=== PATIENT | female | born 1970 | race Two or more races ===

== ENCOUNTER 2021-07-05 14:42 | Outpatient (CLI) | payer BC, MEDICAID, SELFPAY ==
--- NOTE | 2021-07-05 14:50 | MM_ITS ---
WS: [id number] BILATERAL DIGITAL SCREENING MAMMOGRAPHY WITH CAD CLINICAL INFORMATION: SCREENING HISTORY: Screening mammogram. No current complaints. COMPARISON: None available TECHNIQUE: Bilateral CC and MLO views. FINDINGS: No comparisons available The breasts are composed of heterogeneous fibroglandular density tissue, which can limit the detectio n of small underlying mass lesions. Numerous bilateral punctate calcifications. Some of these are ind eterminate in appearance with a linear branching configuration bilaterally. Recommend spot magnificat ion views for further evaluation . MM/[place] [id number] IMPRESSION: BI-RADS: 0-Incomplete: Need additional imaging evaluation FOLLOW UP: Need Additional Imaging Without the benefit of comparisons, recommend spot magnification views bilatera l breasts in the area of calcifications.
== END 2021-07-05 14:43 | disposition home or self-care (01) ==
LOC: RADSHAW 14:48
PROVIDERS: PCP Physician Assistant; Visit Provider Physician Assistant
DX: Z12.31 Encounter for screening mammogram for malignant neoplasm of breast (principal)
CPT/HCPCS: 77067

== ENCOUNTER 2021-08-04 10:09 | Outpatient (CLI) | payer BC, MEDICAID, SELFPAY ==
--- NOTE | 2021-08-04 10:16 | MM_ITS ---
WS: [id number] BILATERAL DIGITAL DIAGNOSTIC MAMMOGRAM MAMMOGRAPHY WITH CAD CLINICAL INFORMATION: KERON CALCIFICATIONS COMPARISON: July 05, 2021 and TECHNIQUE: Bilateral CC, MLO, and ML views. FINDINGS: The breasts are composed of heterogeneous fibroglandular density, which can limit the detection of sm all underlying mass lesions. Punctate calcifications are similar in appearance to the outside examina tion . Some of these appear to represent benign milk of calcium. No suspicious focal mass, asymmetry, calcifications, or architectural distortion. No evidence of zay gnancy. MM/[place] [id number] IMPRESSION: BI-RADS: 2-Benign FOLLOW UP: 1 Year Follow-up Recommend return to annual screening mammography.
== END 2021-08-04 10:10 | disposition home or self-care (01) ==
LOC: RADSHAW 10:12
PROVIDERS: PCP Physician Assistant; Visit Provider Physician Assistant
DX: R92.1 Mammographic calcification found on diagnostic imaging of breast (principal)
CPT/HCPCS: 77066

== ENCOUNTER 2021-08-25 10:32 | Outpatient (CLI) | payer BC, MEDICAID, SELFPAY ==
--- NOTE | 2021-08-25 10:39 | MR_ITS ---
WS: [id number] MRI LUMBAR SPINE NONCONTRAST HISTORY: LUMBAR RADICULOPATHY COMPARISON: None available. TECHNIQUE: Sagittal and axial multisequence imaging is submitted. Straightening and slight reversal of the normal cervical lordosis. C5 retrolisthesis by 2 mm with ost eophytic ridging. Straightening and mild curvature of the thoracic spine. Very mild straightening of the normal lumbar lordosis. Small amount of reactive marrow edema along th e superior endplate of L5. May be related to a Schmorl's node defect. No acute fractures. Mild disc space narrowing and desiccation at L5-S1. Conus terminates normally at L1-2 disc level. L1-L2: Normal. L2-L3: Mild asymmetric disc bulging slightly greater to the RIGHT. No stenosis. L3-L4: Normal. L4-L5: Mild annular disc bulge with a central disc protrusion causing mild flattening of the ventral thecal sac. There is very mild contact on the RIGHT traversing L5 nerve root. Very mild disc and oste ophyte encroachment into the foramina with no high-grade stenosis. Small amount of fluid in the facet joints. L5-S1: Moderate size central disc protrusion. Disc protrusion contacts but does not displace the S1 n erve roots. There is very slightly greater contact on the RIGHT S1 nerve root. Small amount of fluid in the facet joints. There is mild disc encroachment into the LEFT foramen. MR/MR lumbar spine wo con* [id number] IMPRESSION: 1. Moderate size central disc protrusion at L5-S1 contacts but does not displa ce the S1 nerve roots. Slightly greater contact on the RIGHT. 2. Very mild disc encroachment into the LEFT foramen at L5-S1. 3. Mild disc bulging with a central disc protrusion at L4-5 minimal contact on the RIGHT traversing L5 nerve root.
== END 2021-08-25 10:33 | disposition home or self-care (01) ==
LOC: RADSHAW 10:37
PROVIDERS: PCP Physician Assistant; Visit Provider Physician Assistant
DX: M54.16 Radiculopathy, lumbar region (principal); M51.27 Other intervertebral disc displacement, lumbosacral region; M51.26 Other intervertebral disc displacement, lumbar region
CPT/HCPCS: 72148

== ENCOUNTER → 2021-09-16 13:56 | Outpatient (BNVA) | payer BC, MEDICAID, SELFPAY | PROVIDERS: PCP Physician Assistant; Referring Provider Physician Assistant; Visit Provider Orthopaedic Surgery | DX: M54.50 Low back pain, unspecified (principal) | CPT/HCPCS: 72110 ==

== ENCOUNTER 2022-08-10 14:55 | Outpatient (CLI) | payer BC, MEDICAID, SELFPAY ==
--- NOTE | 2022-08-10 15:00 | CT_ITS ---
WS: [id number] CT CHEST WITH INTRAVENOUS CONTRAST HISTORY: NODULE OF LEFT LUNG TECHNIQUE: Contiguous 5 mm axial imaging performed on the thorax. Coronal and sagittal reformats are submitted. All CT scans at [facility] use at least one of these dose optimization techniques: automated exposure control; mA and/or kV adjustment per patient size (includes targeted exams where dose is matched to clinical indication); or iterative reconstruction. CONTRAST: Omnipaque 350; 95 mL IV. DLP: 705.38 mGy.cm COMPARISON: Chest radiograph 07/06/2022 Lungs and central airway: LEFT lower lobe nodule abuts the pleura measuring 12 x 11 mm. There are adj acent small additional ill-defined nodules surrounding the dominant nodule. This corresponds to the a bnormality seen on recent chest radiograph. There are small nodules along the LEFT major fissure whic h are typically benign intrapulmonary lymph nodes. The remaining lungs are clear. Pleura: Normal. No pleural effusion. Heart and pericardium: Normal size heart with no pericardial effusion. Mediastinum and artur: No adenopathy. Vessels: Normal size aortic and pulmonary artery. No coronary artery calcifications. Chest wall and lower neck: No soft tissue masses. Upper abdomen: Hepatic cyst x2. Largest in the RIGHT lobe measures 1.9 cm at its maximum. Appearance of the gallbladder is negative. No adrenal mass. Osseous structures: Straightening and curvature thoracic spine. CT/CT chest w con* [id number] IMPRESSION: 1. LEFT lower lobe nodule measuring 12 x 11 mm abuts the pleura with adjacent tiny satellite nodules. Recommend follow-up PET/CT imaging and ordered chest CT follow-up in 3 months. This may be postinflammatory or early neoplasm. 2. No adenopathy. 3. Hepatic cysts.
[2022-08-10] MEDS: iohexol 350 mg/mL 500 mL Btl (per mL) IV (15:14)
== END 2022-08-10 14:56 | disposition home or self-care (01) ==
LOC: RAD 14:56
PROVIDERS: PCP Physician Assistant; Visit Provider Physician Assistant
DX: R91.1 Solitary pulmonary nodule (principal); K76.89 Other specified diseases of liver
CPT/HCPCS: 71260; Q9967

== ENCOUNTER 2022-10-11 07:00 | Day surgery (SDC) | payer BC, MEDICAID, SELFPAY ==
[2022-10-10 14:46] VITALS: BMI 30.9
[2022-10-11] VITALS (10 sets, daily range): BP systolic 103–143; BP diastolic 55–89; PULSE 80–105; RESP 14–18; TEMP 36.1; O2SAT 91–97
[2022-10-11] MEDS: sodium chloride 0.9% 1,000 ML 30 ML IV (07:30)
[2022-10-11 07:38] LABS: OR HCG Qualitative Urine Negative (Negative)
--- NOTE | 2022-10-11 08:15 | P.ANESASSM_ITS ---
Pre-Anesthetic Assessment Height/Weight: Height 1.6 m Weight 79.379 kg Temp Pulse Resp BP Pulse Ox O2 Del Method 97.0 F L 80 18 143/89 97 10/11/22 07:24 10/11/22 07:24 10/11/22 07:24 10/11/22 07:24 10/11/22 07:24 10/11/22 07:24 Operation Date: 10/11/22 09:10 Proposed Procedures p Ebus 14141 and 86321, 92330, 99113; Dx Pulmonary nodule, R91.1(Not Applicable) - Erik Geller DatarMD Familial anesthetic complications: None Was Beta Vane taken within 24 hours: N/A Was Clonidine taken within 24 hours: N/A Last intake: Intake Last Liquid Date 10/10/22 Last Liquid Time 20:00 Last Solid Date 10/10/22 Last Solid Time 18:30 Social No alcohol and No tobacco fromer smoker Exam alert, oriented x 3, clear to auscultation bilaterally and regular rate & rhythm Airway Mallampati: Class III Dentition: chipped Pulmonary Asthma GI Gastroesophageal Reflux Disease Musc/skel Lower Back Pain Neuropsych Anxiety Anesthetic Plan ASA status: 2 Anesthesia: General Risk of > 500 ml blood loss (7ml/kg in children): No Medications/Allergies Home Medications Medication Instructions Recorded Confirmed Last Taken Type cbd oil PO 09/16/21 10/06/22 1 Month Ago History ~09/09/22 ibuprofen 600 mg tablet 600 mg PO Q8H PRN Pain 09/16/21 10/10/22 1 Day Ago Histo ry ~10/10/22 albuterol sulfate 90 mcg/actuation 2 puff inhalation Q4H PRN 10/06/22 10/10/22 1 Day Ago History aerosol inhaler Shortness Of Breath ~10/10/22 budesonide-formoterol HFA 160 2 puff inhalation BID 10/06/22 10/10/22 1 Day Ago History mcg-4.5 mcg/actuation aerosol ~10/10/22 inhaler (Symbicort) calcium 600 mg-D3 800 unit-mag11 1 tab PO DAILY 10/06/22 10/11/22 1 Day Ago History 50 ie-wwsn-gyldxb-lopez-s.borat ~10/10/22 tablet cyclobenzaprine 10 mg tablet 10 mg PO TID PRN Anxiety 10/06/22 10/10/22 10/08/22 History famotidine 20 mg tablet 20 mg PO BID 10/06/22 10/10/22 10/10/22 History multivitamin 1 tab PO DAILY 10/06/22 10/10/22 10/08/22 History Allergies Allergy/AdvReac Type Severity Reaction Status Date / Time Penicillins Allergy Intermediate rash Verified 10/06/22 08:15 PFSH Anesthesia Family History Other Diabetes Family history of premature coronary artery disease Social History Smoking and tobacco status: former smoker Quit status (tobacco): has quit using tobacco Year quit tobacco: 1997 Former quit date comment: 1ppd X 20 years Second hand smoke exposure: No Smoking risk assessment/counseling performed?: No Alcohol intake: current Alcohol intake frequency: holidays/special occasions only Desire information about alcohol rehabilitation?: No Desire information about substance/drug rehabilitation?: No Counseling given: No Adopted: Yes Caregiver/support person: Yes Lives independently: No Household members: spouse Housing: Apartment Marital status: Number of children: 0 Highest education level completed: 11th Grade service: No Current occupational status: unemployed Current occupational exposures/hazards: No Pets and animals: Yes History of recent travel: Yes Out of state: Yes Out of country: No Current gender identity: Female Special gayla needs: No Agree to transfusion: Yes Data Anesthesia Cardiac Studies: No Data to Display
--- NOTE | 2022-10-11 09:50 | W.PM.OPSUD ---
Surgery/Procedure H&P Update DATE OF PROCEDURE: October 11, 2022 DATE H&P PERFORMED: 10/06/22 H&P UPDATE INFORMATION: I have reviewed H&P completed within last 30 days CHANGES TO PREVIOUS DOCUMENTATION: NONE PREOP DIAGNOSIS: PET Active left hilar lymph node - suspicious for malignancy PLANNED PROCEDURE: Operation Date: 10/11/22 09:10 Proposed Procedures p Ebus 12928 and 65360, 12362, 46032; Dx Pulmonary nodule, R91.1(Not Applicable) - Erik Geller DatarMD
[2022-10-11] MEDS: lidocaine 1% INJ 20 mL XX (10:08)
--- NOTE | 2022-10-11 10:55 | P.OP_ITS ---
Operative Report Date of procedure: October 11, 2022 Pre-op diagnosis: Preop Diagnosis PET Active left hilar lymph node - suspicious for malignancy Post-op diagnosis: preliminary diagnosis nonsmall cell cancer Procedure done: -CPT code 87787: Bronchoscope with BAL from Left lower lobe -CPT code 47289:EBUS Sampling 1/2 nodes Surgeon: Erik Wei MD [facility] Brief History: Ms. Kristy Lisa is a 51 year old female with Past medical history of low back pain and lumbar radiculopathy.,? Generalized anxiety disorder,?? Asthma, ex- smoker, referred by Gale Dumont for left lung nodule. Initially she underwent a chest x-ray for shortness of breath on 07/06/2022 which showed 1.8 cm soft tissue nodule in left lower lung zone.? Subsequently a CT chest was performed on 08/11/2022 which showed left lower lobe nodule measuring 12 x 11 mm abuts the pleura with adjacent tiny satellite nodules.? There were suspicious for early neoplasm as patient has significant history of smoking? 1 pack/day for 20 years and quit in 1997. Patient underwent PET/CT scan on 08/27/2022-reported subpleural 0.9 x 1.2 cm LLL nodule with SUV 2.1 (FDG uptake misregistered due to motion artifact compared to adjacent lung parenchyma with max SUV 0.8) with hypermetabolic activity-this is suspicious for primary lung neoplasm.? Also noted hypermetabolic left perihilar lymph node or nodule measuring 1.6 x 1.8 cm with max SUV of 4.1.? There are no other hypermetabolic thoracic lymph nodes or pulmonary nodules.?Also there is mild increased FDG uptake of the endometrial stripe . Obtaining biopsies for left lower lobe subpleural nodule has high chance of developing pneumothorax, hence I have discussed with patient about doing endobronchial ultrasound-guided biopsies of left hilar lymph node. She verbalized understanding and agreed for the procedure. Today I am going to perform endobronchial ultrasound-guided FNA C of left hilar lymph node. Procedure: -CPT code 37150: Bronchoscope with BAL from Left lower lobe -CPT code 29970:EBUS Sampling 1/2 nodes -Control of bleeding Indication: PET active left hilar lymphnode Anesthesia: General anesthesia. Local anesthesia: The vocal chords, niru in the right and left mainstem bronchi were anesthetized with 1% lidocaine, 3 mL. Description of the procedure: The procedure was explained to the patient and the consent was obtained. The patient was brought to the OR. The patient underwent Laryngeal mask airway placement for general anesthesia. Following induction of general anesthesia, the bronchoscope was advanced through the LMA. The Vocal c hords are mobile and sharp. 1ml 1% lidocaine instilled. The scope advanced through glottis and trachea mucosa appeared normal, no endotracheal lesion was seen. The niru was sharp. The niru, the right and left mainstem bronchi are anesthetized with 1 ml of 1% lidocaine. In a systematic manner bilateral bronchial tree was then examined. The bronchoscope was advanced into the left mainstem bronchus. The mucosa appeared normal with no endobronchial lesions. The left upper lobe, lingula and left lower lobe bronchi were examined up to the third subsegmental level and no abnormalities were identified. Mucosa appeared normal with no endobronchial lesion, active bleeding or mucous plug. There were some clear secretions in lower lobe-which were suctioned right away. The bronchoscope was then introduced into the right mainstem bronchus. The right upper lobe, right middle lobe and right lower lobe bronchi were examined up to the third subsegmental level and no abnormalities were identified. The mucosa appeared normal with no endobronchial lesions, active bleeding or mucous plugs. The bronchoscope was retracted and endobronchial ultrasound was introduced. Identified a lymph node in station 11 L and fine-needle aspiration cytology samples were obtained ([id number]). Prepared 1 touch prep from station 11 L lymph node for YANDEL and preliminary pathology diagnosis was suspicious for malignancy. I made 3 more passes and obtained tissue and placed in formalin for histopathology review. Ebus retracted and bronchoscope reintroduced to make sure there is no evidence of overt bleeding. After making sure there is no bleeding, bronchoscope was wedged in medial segment of left lower lobe. 30 ml of normal saline was instilled, brochoa lveolar lavage fluid return was 15 mL. The fluid was mixed with blood. There was no overt bleeding. Samples: 1. Bronchoalveolar lavage specimen was sent for cell count and differential, gram stain and culture, cytology 2. EBUS guided fine-needle aspiration cytology of station 11L lymph node- samples sent in formalin for histopathology review Complications: None.The patient was extubated and brought to the PACU in stable condition. Postprocedure chest x-ray: No evidence of pneumothorax Disposition: Patient can be discharged home in stable condition. I will set up clinic follow-up in 7-10 days to follow-up on biopsy results. Related Problem List Diagnoses (1) Left lower lobe pulmonary nodule: (2) Hilar adenopathy:
--- NOTE | 2022-10-11 10:56 | XR_ITS ---
WS: [id number] Exam: XR chest 1V portable [id number] Date/Time of Exam: 10/11/2022 11:00 AM Reason For Exam: post hilar lymph node biopsies Comparison 07/06/2022. The lungs are clear and fully expanded. Normal cardiomediastinal silhouette and regional bony element s. No pleural effusions. XR/XR chest 1V portable [id number] IMPRESSION: 1. Negative chest.
[2022-10-11 18:13] LABS: Apprearance, Bronch Wash Cloudy (CLEAR); Color, Bronc Wash Slight Pink; Cyto Order Verification Order Verified
[2022-10-11 18:46] LABS: Total Cells Counted Bronch 200
[2022-10-20 10:50] LABS: PD-L1 (Clone 22C3) by IHC BBPL See Report
== END 2022-10-11 12:05 | disposition home or self-care (01) ==
PROVIDERS: Anesthesiology; PCP Physician Assistant; Visit Provider Internal Medicine Pulmonary Disease
PROC: 0BJ08ZZ Inspection of Tracheobronchial Tree, Via Natural or Artificial Opening Endoscopic (ICD-10-PCS; CPT 31622; principal; 2022-10-11 09:00)
PROC: BB4BZZZ Ultrasonography of Pleura (ICD-10-PCS; 2022-10-11 09:00)
DX: C96.9 Malignant neoplasm of lymphoid, hematopoietic and related tissue, unspecified (principal); Z87.891 Personal history of nicotine dependence; J45.909 Unspecified asthma, uncomplicated; K21.9 Gastro-esophageal reflux disease without esophagitis; F41.9 Anxiety disorder, unspecified
CPT/HCPCS: 31624; 31652; 71045; 80503; 84703; 87070; 87205; 88112; 88305; 88341; 88342; 89050; J1100; J2250; J2405; J2704; J3010; J3490; J7030

== ENCOUNTER 2022-11-01 06:59 | Outpatient (CLI) | payer BC, MEDICAID, SELFPAY ==
--- NOTE | 2022-11-01 | ECG_ITS ---
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 Interpretive Statements NAME OF STUDY: EXERCISE SESTAMIBI STRESS TEST INDICATION: Chest Pain, PROCEDURE: The baseline electrocardiogram showed normal sinus rhythm with normal ST-Ts. At the baseline, the patient's blood pressure was 149/93 mmHg with a heart rate of 89. The patient exercised for 7 minutes and 30 seconds on a standard Zain protocol. Patient attained a maximum heart rate of 157 beats per minute(92% of the maximum predicted heart rate) with a blood pressure at the peak exercise of 177/78 mm Hg. The EKG at the peak exercise revealed no significant changes. Patient did not have any chest pain or any significant arrhythmis with the exercise Sestamibi was injected 1 minute prior to the peak exercise During the recovery phase, there were no new changes. Blood pressure at the end of the recovery phase was 150/91 mm Hg with a heart rate of 94 per minute. CONCLUSION: 1. Normal EKG response to treadmill exercise 2. No exercise-induced chest pain or cardiac arrhythmia 3. Fair exercise tolerance, attained a maximum of 10.2 METs 4. Sestamibi/Sestamibi perfusion results pending; see separate report. Electronically Signed On 11-01-2022 16:03:08 CDT by Brice Dee M.D. [id number]
[2022-11-01 07:05] VITALS: BMI 30.1
--- NOTE | 2022-11-01 07:32 | NMCV_ITS ---
NM hernan perf SPECT r/s* [id number] Kristy Lisa Age: 51 Gender: F : 1970 Exam Date: 11/01/2022 08:20 Ordering Phys: Myriam Dumont Technologist: COSTA Hussein Exam Location: [facility] Indications: CHEST PAIN STRESS TEST Please see separate stress test report in [facility] for full findings IMAGE PROTOCOL Rest/Stress 1 Exercise Day Radiopharmaceutical Dose (mCi) Administration Site Administered by Rest: Tc-99m 10.8 IV COSTA Lai Sestamibi Stress:Tc-99m 32.7 IV COSTA Lai Sestamibi Rest: 01-Nov-2022 60 Discovery 630 Stress: 01-Nov-2022 15 Discovery 630 Radiopharmaceutical was injected at 88 % maximum heart rate. Images obtained in supine and prone position. SPECT RESULTS Technical Quality: Excellent Raw Data Analysis: Normal Image Corrections: No attenuation or motion correction applied Summed Stress Score: 0 Summed Rest Score: 2 Summed Difference Score: 0 PERFUSION FINDINGS Fairly uniform myocardial tracer uptake with no significant perfusion abnormalities. Some attenuation artifacts were noted in the inferolateral region at rest FUNCTIONAL RESULTS (calculated via Gated SPECT) Stress Image LV EF (%): 80 Stress EDV (mL):56 TID: 1.07 Stress ESV (mL):11 FUNCTIONAL FINDINGS: Segmental wall motion analysis revealing no gross wall motion abnormalities IMPRESSIONS 1. Myocardial perfusion imaging revealing fairly uniform myocardial tracer uptake with no significant perfusion abnormalities. 2. Normal LV ejection fraction of 80%. 3. LV wall motion analysis revealing no gross wall motion abnormalities. 4. Normal LV volume. Low probability for coronary ischemia, based on the above findings No similar previous studies are available for comparison Dr Brice Dee MD [facility] (Electronically Signed) Final Date: 01 November 2022 12:01 S
[2022-11-01 09:22] VITALS: BP 150/91; PULSE 98
== END 2022-11-01 07:00 | disposition home or self-care (01) ==
LOC: CDL 07:02
PROVIDERS: PCP Physician Assistant; Visit Provider Physician Assistant
DX: R07.9 Chest pain, unspecified (principal)
CPT/HCPCS: 36415; 78452; 93017; A9500

== ENCOUNTER 2022-11-03 07:09 | Outpatient (CLI) | payer BC, MEDICAID, SELFPAY | END 2022-11-03 07:10 | disposition home or self-care (01) | LOC: RT 07:12 | PROVIDERS: PCP Physician Assistant; Visit Provider Internal Medicine Pulmonary Disease | DX: R91.1 Solitary pulmonary nodule (principal) | CPT/HCPCS: 94010; 94618; 94726; 94729 ==

== ENCOUNTER → 2022-11-08 12:00 | Outpatient (BNVA) | payer BC, MEDICAID, SELFPAY | PROVIDERS: PCP Physician Assistant; Referring Provider Physician Assistant; Visit Provider Nurse Practitioner Women's Health | DX: Z12.4 Encounter for screening for malignant neoplasm of cervix (principal) | CPT/HCPCS: 87624; 88305 ==

== ENCOUNTER 2022-12-02 09:14 | Day surgery (SDC) | payer BC, MEDICAID, SELFPAY ==
[2022-12-01 14:07] VITALS: BMI 31.3
[2022-12-02] VITALS (8 sets, daily range): BP systolic 126–145; BP diastolic 75–96; PULSE 79–96; RESP 12–18; TEMP 36.3–37; O2SAT 91–99
--- NOTE | 2022-12-02 09:21 | SC_ITS ---
WS: [id number] EXAMINATION: C-arm FL for CVA [id number] REASON FOR EXAM: Mediport insertion COMPARISON: None available. ORDER DATE: 12/02/2022 9:21 AM FINDINGS: A wire is placed on the single C-arm view at 1009 for vascular access followed by placement of right- sided Port-A-Cath SC/C-arm FL for CVA [id number] IMPRESSION: Satisfactory port placement. Fluoroscopy time 2.1 seconds
[2022-12-02 09:44] LABS: OR HCG Qualitative Urine Negative (Negative)
[2022-12-02] MEDS: sodium chloride 0.9% 1,000 ML 30 ML IV (09:46)
--- NOTE | 2022-12-02 10:12 | ANES.PREANE2 ---
Pre-Anesthetic Assessment Height/Weight: Height 1.6 m Weight 80.286 kg Temp Pulse Resp BP Pulse Ox O2 Del Method 97.7 F 79 18 136/78 97 Room Air 12/02/22 09:36 12/02/22 09:36 12/02/22 09:36 12/02/22 09:36 12/02/22 09:36 12/02/22 09:36 Preop Diagnosis: Non-small cell lung cancer Operation Date: 12/02/22 10:40 Proposed Procedures p 48246 port placement C34.92(Not Applicable) - Dax Dia DO Familial anesthetic complications: none Was Beta Vane taken within 24 hours: N/A Was Clonidine taken within 24 hours: N/A Last intake: Intake Last Liquid Date 12/01/22 Last Liquid Time 21:00 Last Solid Date 12/01/22 Last Solid Time 19:30 Social No alcohol and No tobacco (h/o smoking) Exam alert, oriented x 3 and regular rate & rhythm Airway Submandibular: within normal limits Cervical ROM: within normal limits Mallampati: Class II Dentition: chipped Pulmonary Chronic Obstructive Pulmonary Disease lung CA Metabolic Morbid Obesity Anesthetic Plan ASA status: 2 Anesthesia: Choice Medications/Allergies Home Medications Medication Instructions Recorded Confirmed Last Taken Type cbd oil PO 09/16/21 11/30/22 1 Month Ago History ~09/09/22 albuterol sulfate 90 mcg/actuation 2 puff inhalation Q4H PRN 10/06/22 12/02/22 11/19/22 History aerosol inhaler Shortness Of Breath budesonide-formoterol HFA 160 2 puff inhalation BID 10/06/22 12/02/22 12/01/22 History mcg-4.5 mcg/actuation aerosol inhaler (Symbicort) calcium 600 mg-D3 800 unit-mag11 1 tab PO DAILY 10/06/22 12/02/22 12/01/22 History 50 ak-grvq-xpmiux-lopez-s.borat tablet cyclobenzaprine 10 mg tablet 10 mg PO TID PRN Anxiety 10/06/22 12/02/22 10/08/22 History famotidine 20 mg tablet 20 mg PO BID 10/06/22 12/02/22 12/02/22 History multivitamin 1 tab PO DAILY 10/06/22 12/02/22 11/30/22 History aspirin 500 mg tablet,delayed 500 mg PO DAILY PRN supplement 10/25/22 12/02/22 Unknown History release berberine-herbal comb no.18 capsule 2 cap PO DAILY 10/25/22 12/02/22 12/01/22 History biotin 10,000 mcg chewable tablet See Rx Instructions PO DAILY 10/25/22 12/02/22 12/01/22 History (Hair, Skin and Nails (biotin)) fluticasone propionate 50 2 spray intranasal DAILY 10/25/22 12/02/22 Unknown History mcg/actuation nasal spray,suspension loratadine 10 mg tablet (Claritin) 10 mg PO DAILY 10/25/22 12/02/22 12/02/22 History ibuprofen 200 mg tablet 200 mg PO Q6H PRN Pain 11/08/22 12/02/22 11/30/22 History norethindrone acetate 5 mg tablet 5 mg PO DAILY #90 tabs 11/25/22 12/02/22 12/02/22 Rx Allergies Allergy/AdvReac Type Severity Reaction Status Date / Time Penicillins Allergy Intermediate rash Verified 11/30/22 14:11 Current Medications Generic Name Dose Route Start Last Admin Trade Name Freq PRN Reason Stop Dose Admin Sodium Chloride 1,000 mls @ 30 mls/hr 12/02/22 09:30 12/02/22 09:46 Sodium Chloride 0.9% IV 12/03/22 09:29 30 mls/hr .Q24H GEORGE Administration PFSH Anesthesia Medical History Anxiety Asthma No pertinent past medical history neghx: htn,dm,thyroid,dvt/pe PCP: Myriam GONZALEZ Non-small cell cancer of left lung (~10/2022) Referred to [facility] for possible surgery Surgical History No pertinent past surgical history Family History Father Hyperlipidemia Other Diabetes Family history of premature coronary artery disease Denies family history of Colon cancer Ovarian cancer Heart disease Breast cancer Hypertension Uterine cancer Thyroid condition Stroke Social History Smoking and tobacco status: former smoker Alcohol intake: current Alcohol intake frequency: holidays/special occasions only Data Anesthesia Cardiac Studies: Sestamibi Stress Test (Cardiology) 11/01/22
--- NOTE | 2022-12-02 10:15 | PM.OP ---
Operative Report Date of procedure: December 05, 2022 Pre-op diagnosis: Preop Diagnosis Non-small cell lung cancer Post-op diagnosis: same Procedure done: Right subclavian Mediport placement Implants: PowerPort Specimens removed/disposition: None Surgeon: Dr. Dax Dia DO Anesthesia: MAC Estimated blood loss (mL): 5 Complications: None apparent Brief History: This is a very pleasant 52-year-old female with left lung cancer. Mediport insertion was requested for chemotherapy access. The risk and benefits were explained and documented. Procedure: The patient was taken to the operating room and placed supine on the operating room table. All bony prominences were padded. She was given IV sedation and monitored throughout the case by the anesthesia personnel. SCDs were placed and turned on. The arms were tucked to the side. Patient received Ancef 2 g preoperatively IV. The bilateral chest wall was prepped and draped in usual sterile fashion using chlorhexidine base prep. Sterile drapes were applied. We did procedure pause prior to beginning. An 18 gauge needle was placed in the right subclavian vein. Dark, nonpulsatile blood was aspirated. A guidewire was placed through the needle centrally toward the atrial/vena caval junction. Fluoroscopy visualized good placement. The needle was removed and the guidewire was clipped to the drape with a hemostat. Further local anesthetic was infiltrated in the soft tissues of the right chest wall and a #15 blade was used to make a horizontal skin incision. A subcutaneous Mediport pocket was created using Bovie cautery, dissecting down through the skin and subcutaneous tissues. Meticulous hemostasis was achieved. The Mediport was sutured in position using 3-0 vicryl suture x2 stitches. A #15 blade was used to make a small skin edinson around the guidewire insertion area. The Mediport tubing was tunneled through the subcutaneous tissues up to the needle insertion location. A dilator with a peel-away sheath was placed over the guidewire and placed centrally. After measuring the Mediport tubing was cut to length so that the tip would end at the atrial/vena caval junction. The inner cannula and the guidewire were removed, leaving the dilator sheath in place. The Mediport was flushed. The tip of the catheter was inserted through the peel-away sheath and the peel-away sheath removed in the standard fashion. The Mediport was accessed with a straight Turner needle and dark, nonpulsatile blood was aspirated and flushed using heparinized saline to hep-lock the Mediport. Final fluoroscopy visualization showed no kink in the catheter and the tip of the Mediport tubing near the atrial/vena caval junction. Both skin incisions were thoroughly irrigated and suctioned dry. Meticulous hemostasis noted. The dermis was approximated with 3-0 Vicryl in an interrupted fashion. Skin was closed with Dermabond. Patient was awakened from anesthesia and transferred via her cart to the recovery room in stable condition. All needle, sponge, and instrument counts were correct per the operating personnel x2 counts.
--- NOTE | 2022-12-02 10:25 | W.PM.OPSUD ---
Surgery/Procedure H&P Update DATE OF PROCEDURE: December 02, 2022 DATE H&P PERFORMED: 11/30/22 H&P UPDATE INFORMATION: I have reviewed H&P completed within last 30 days, I have examined patient prior to procedure and No changes to prior documentation PREOP DIAGNOSIS: Non-small cell lung cancer PLANNED PROCEDURE: Operation Date: 12/02/22 10:40 Proposed Procedures p [id number] port placement C34.92(Not Applicable) - Dax Dia DO
[2022-12-02] MEDS: vancomycin 1,500 MG/300 ML PIGGYBACK 150 MG IV (10:30)
[2022-12-02] MEDS: sodium chloride 0.9% 100 mL Bag XX (11:09)
[2022-12-02] MEDS: lidocaine-epi 2% 20 mL INJ INJECTION (11:10)
[2022-12-02] MEDS: heparin, porcine 1,000 unit/mL INJ 10 mL 10000 UNIT INJECTION (11:10)
--- NOTE | 2022-12-02 11:32 | XRR_ITS ---
PROCEDURE INFORMATION: Exam: XR Chest Exam date and time: 12/02/2022 10:37 AM Age: 52 years old Clinical indication: Device placement; Other: Port placement; Prior surgery; Surgery date: Post-operative (0-2 days) TECHNIQUE: Imaging protocol: Radiologic exam of the chest. Views: 1 view. COMPARISON: CR XR chest 1V portable [id number] 10/11/2022 11:13 AM FINDINGS: Tubes, catheters and devices: Right central line is in the SVC Lungs: Unremarkable. No consolidation. Pleural spaces: Unremarkable. No pleural effusion. No pneumothorax. Heart/Mediastinum: Unremarkable. No cardiomegaly. Bones/joints: Unremarkable. XR/XR chest 1V portable [id number] IMPRESSION: 1. No acute findings. 2. Right central line is in the SVC
[2022-12-02] MEDS: HYDROcodone-acetaminophen 5-325 mg Tablet 1 TAB PO (12:13)
--- NOTE | 2022-12-02 13:40 | ANE.PACU2 ---
Inpatient post-anesthesia follow up: Airway intact: Yes Vital signs: Temperature 98.6 F Pulse Rate 89 Respiratory Rate 18 Blood Pressure 132/96 Pulse Oximetry 91 Oxygen Delivery Me thod Room Air Oxygen Flow Rate 6 Fraction of Inspir ed Oxygen Hydration adequate: Yes Nausea and vomiting: No Pain level: 2 Mental status: Baseline
== END 2022-12-02 12:32 | disposition home or self-care (01) ==
PROVIDERS: Anesthesiology; PCP Physician Assistant; Visit Provider Surgery
PROC: (CPT 36561; principal; 2022-12-02 10:30)
DX: C34.92 Malignant neoplasm of unspecified part of left bronchus or lung (principal); F41.9 Anxiety disorder, unspecified; J44.9 Chronic obstructive pulmonary disease, unspecified; E66.9 Obesity, unspecified; Z68.31 Body mass index [BMI] 31.0-31.9, adult; Z79.82 Long term (current) use of aspirin; Z87.891 Personal history of nicotine dependence
CPT/HCPCS: 36561; 71045; 76000; 77001; 81025; 84703; C1788; J1644; J2704; J3370; J7030

== ENCOUNTER 2022-12-12 07:37 | Outpatient (CLI) | payer BC, MEDICAID, SELFPAY ==
--- NOTE | 2022-12-12 07:49 | MR_ITS ---
WS: [id number] MRI BRAIN WITH AND WITHOUT CONTRAST HISTORY: LUNG CANCER STAGING COMPARISON: None available. TECHNIQUE: Multiplanar imaging performed through the brain with MultiHance 18 ml's IV. No acute infarcts are seen. Arias-white matter differentiation is well preserved. No susceptibility artifacts or prior lacunar infarcts. Ventricles and extra-axial spaces are normal. Clivus and pituitary gland are normal. Visualized posterior fossa and brainstem are also normal. Postcontrast images are negative for masses or vascular malformations. Dural venous sinuses are normal. Paranasal sinuses: Well aerated with no significant disease. Mastoid air cells: Normal. Calvarium and scalp: Normal. MR/MR head wo/w con [id number] IMPRESSION: 1. No MRI evidence for metastatic disease to the brain. 2. No prior infarcts or significant small vessel ischemic disease.
[2022-12-12] MEDS: gadobenate dimeglumine 20 mL vial IV (08:45)
== END 2022-12-12 07:38 | disposition home or self-care (01) ==
LOC: RAD 07:40
PROVIDERS: PCP Physician Assistant; Visit Provider Thoracic Surgery (Cardiothoracic Vascular Surgery)
DX: C34.90 Malignant neoplasm of unspecified part of unspecified bronchus or lung (principal)
CPT/HCPCS: 70553; A9577

== ENCOUNTER 2022-12-14 09:58 | Oncology outpatient (recurring) (ONCR) | payer BC, MEDICAID, SELFPAY ==
[2022-11-28 15:00] LABS: Basophils % 0.5 %; Eosinophils # 0.2 10^3/uL (0.0-0.8); Eosinophils % 2.9 %; Hematocrit 39.6 % (37.0-47.0); Hemoglobin 13.1 g/dL (11.5-15.3); Lymphocytes # 1.5 10^3/uL (0.8-4.8); Lymphocytes % 19.1 %; Mean Corpuscular HGB Conc 33.1 g/dL (30.0-36.0); Mean Corpuscular Hemoglobin 30.5 pg (28.0-34.0); Mean Corpuscular Volume 92.1 fl (81-99); Mean Platelet Volume 8.6 fL (7.4-10.4); Monocytes # 0.4 10^3/uL (0.2-0.9); Monocytes % 5.6 %; Neutrophils # 5.63 10^3/uL (1.8-7.7); Neutrophils % 71.5 %; Nucleated Red Blood Cells % 0 %; Platelet Count 269 10^3/cmm (130-400); Red Cell Distribution Width 12.9 % (12.1-15.1); White Blood Count 7.9 10^3/uL (4.0-10.0)
[2022-11-28 15:25] LABS: Alanine Aminotransferase 13 U/L (0-33); Albumin Level 4.4 g/dL (3.5-5.2); Alkaline Phosphatase 54 U/L (35-105); Anion Gap 12.1 (5-19); Aspartate Amino Transferase 15 U/L (0-32); Blood Urea Nitrogen 10 mg/dL (6-20); Calcium 8.7 mg/dL (8.5-10.5); Carbon Dioxide 25 mmol/L (22-29); Chloride 100 mmol/L (98-107); Globulin 2.9 g/dL (1.3-4.6); Glomerular Filtration Rate 129.6 mL/min (90-130); Glucose 110 mg/dL (65-115); Osmolality Calculated 276 mOsm/kg (285-295); Potassium 4.1 mmol/L (3.5-5.1); Sodium 133 mmol/L (136-145); Total Bilirubin 0.2 mg/dL (0.15-1.2); Total Protein 7.3 g/dL (6.6-8.7)
--- NOTE | 2022-12-14 10:25 | N.ONRAD NP_ITS ---
Radiation Oncology Consultation Patient Name: Kristy Lisa Date of : 1970 Date of Service: 12/14/2022 Attending Physician: Flash Araiza M.D. Kristy Lisa was seen in consultation this afternoon at the request of Nick Prasad M.D. for consideration of thoracic radiotherapy in the management of a recently diagnosed non-small cell lung cancer. She was evaluated by her primary care physician in June of 2022 for dyspnea. Chest radiograph identified a 1.8 cm soft tissue nodule in the lower left lung. A thoracic CT scan ordered on August 10, 2022 described a 1.2 cm x 1.1 cm left lower-lobe nodule that abuts the pleura and benign intrapulmonary lymph nodes along the left major fissure. A PET scan completed on August 27, 2022 (independently reviewed in [facility]) demonstrated a 0.9 cm x 1.2 cm left lower-lobe nodule (SUV 2.1) and left alexy-hilar lymphadenopathy measuring 1.6 cm x 1.8 cm (SUV 4.1). A bronchoscopy with endobronchial ultrasound-guided biopsy performed on October 11, 2022 by Erik Wei M.D. A needle aspiration of an 11L lymph node a squamous cell carcinoma. She was referred to [facility] in [place], [place]. A thoracic CT scan revealed the 1.4 cm left lower-lobe nodule, pleural metastasis in the left oblique fissure, and left hilar lymphadenopathy. She was not considered a surgical candidate. An MRI of the head did not reveal metastatic disease. The patient was evaluated for definitive thoracic radiotherapy. I discussed with Ms. Lisa The [place] [employer] on [employer] Staging for lung cancer and specifically, the patient's clinical stage IIIA (T3N1) lung cancer corresponding to her disease. I also reviewed The National Comprehensive Cancer Network Guidelines recommending concurrent chemoradiotherapy for the management of locally advanced lung cancer established by the classic study, RTOG 9410, comparing sequential versus concurrent chemoradiotherapy that demonstrated an overall survival advantage for the concurrent chemoradiotherapy regimen. I would endorse a six week course of thoracic radiotherapy. Preceding radiotherapy, a computed tomographic radiotherapy planning scan with contrast in the treatment position will be acquired and co-registered to the patient's staging PET scan to identify the gross tumor volumes. The potential toxicities of thoracic radiotherapy were reviewed. The patient has verbalized understanding would like to proceed as recommended. The patient???s treatment plan was discussed with Nick Prasad M.D. Signed by: Flash Araiza 12/19/2022 1:33:40 PM
== END 2022-12-18 23:59 | disposition home or self-care (01) ==
PROVIDERS: PCP Physician Assistant; Visit Provider Internal Medicine Hematology & Oncology
DX: C34.32 Malignant neoplasm of lower lobe, left bronchus or lung (principal); C77.8 Secondary and unspecified malignant neoplasm of lymph nodes of multiple regions; Z87.891 Personal history of nicotine dependence
CPT/HCPCS: 36415; 80053; 85025; 99205; J2250; J3010

== ENCOUNTER 2023-01-09 08:00 | Oncology outpatient (recurring) (ONCR) | payer BC, MEDICAID, SELFPAY ==
--- NOTE | 2022-12-20 | CT_ITS ---
Radiation Therapy Planning CT images; total exam DLP: 566.94 mGy-cm MTDD
[2022-12-20] MEDS: iohexol 350 mg/mL 100 mL Btl IV (08:26)
[2022-12-26 09:00] VITALS: BP 130/81; PULSE 79; RESP 18; TEMP 35.8; O2SAT 97
[2022-12-26 09:13] LABS: Basophils % 0.7 %; Eosinophils # 0.3 10^3/uL (0.0-0.8); Eosinophils % 5.2 %; Hematocrit 38.1 % (37.0-47.0); Hemoglobin 12.2 g/dL (11.5-15.3); Lymphocytes # 1.5 10^3/uL (0.8-4.8); Lymphocytes % 25.5 %; Mean Corpuscular Hemoglobin 29.7 pg (28.0-34.0); Mean Corpuscular Volume 92.7 fl (81-99); Mean Platelet Volume 8.9 fL (7.4-10.4); Monocytes # 0.5 10^3/uL (0.2-0.9); Monocytes % 7.8 %; Neutrophils % 60.6 %; Nucleated Red Blood Cells % 0 %; Platelet Count 282 10^3/cmm (130-400); Red Blood Count 4.11 10^6/uL (4.1-5.3); Red Cell Distribution Width 13.2 % (12.1-15.1); White Blood Count 5.9 10^3/uL (4.0-10.0)
[2022-12-26 09:28] LABS: Alanine Aminotransferase 15 U/L (0-33); Albumin Level 4.1 g/dL (3.5-5.2); Alkaline Phosphatase 46 U/L (35-105); Anion Gap 14.1 (5-19); Aspartate Amino Transferase 13 U/L (0-32); Blood Urea Nitrogen 11 mg/dL (6-20); Carbon Dioxide 22 mmol/L (22-29); Chloride 107 mmol/L (98-107); Globulin 2.9 g/dL (1.3-4.6); Glomerular Filtration Rate 129.6 mL/min (90-130); Glucose 90 mg/dL (65-115); Osmolality Calculated 287 mOsm/kg (285-295); Potassium 4.1 mmol/L (3.5-5.1); Sodium 139 mmol/L (136-145); Total Bilirubin 0.2 mg/dL (0.15-1.2)
[2022-12-26] MEDS: acetaminophen 325 mg Tablet 650 MG PO (11:13)
[2022-12-26] MEDS: famotidine 20 mg/2 mL INJ IVP (11:14)
[2022-12-26] MEDS: palonosetron 0.25 mg/5 mL SDV IVP (11:14)
[2022-12-26] MEDS: diphenhydrAMINE 50 mg/mL SDV 1mL 25 MG IVP (11:14)
[2022-12-26] MEDS: dexamethasone 20 MG in sodium chloride 0.9% 50 ML 188 MG IV (11:15)
[2022-12-26] MEDS: sodium chloride 0.9% 250 ML 75 ML IV (11:15)
[2022-12-26] MEDS: PACLitaxeL 90 MG in sodium chloride 0.9%(non-DEHP) 250 ML 265 MG IV (11:45)
[2022-12-26] MEDS: CARBOplatin 300 MG in sodium chloride 0.9% 500 ML 530 MG IV (12:56)
[2022-12-26 14:10] VITALS: BP 140/79; PULSE 97; RESP 18; TEMP 36.7; O2SAT 98
--- NOTE | 2022-12-27 14:59 | ONCRAD TMN_ITS ---
Radiation Oncology Treatment Management Note Patient Name: Kristy Lisa Date of : 1970 Date of Service: 12/27/2022 Attending Physician: Flash Araiza M.D. Kristy Lisa is a 52 year old white female recently diagnosed with a clinical stage IIIA (T3N1) non-small cell lung cancer. She was evaluated by her primary care physician in June of 2022 for dyspnea. Chest radiograph identified a 1.8 cm soft tissue nodule in the lower left lung. A thoracic CT scan ordered on August 10, 2022 described a 1.2 cm x 1.1 cm left lower-lobe nodule that abuts the pleura and benign intrapulmonary lymph nodes along the left major fissure. A PET scan completed on August 27, 2022 demonstrated a 0.9 cm x 1.2 cm left lower-lobe nodule (SUV 2.1) and left alexy-hilar lymphadenopathy measuring 1.6 cm x 1.8 cm (SUV 4.1). A bronchoscopy with endobronchial ultrasound-guided biopsy performed on October 11, 2022 by Erik Wei M.D. A needle aspiration of an 11L lymph node a squamous cell carcinoma. She was referred to [facility] in [place], [place]. A thoracic CT scan revealed the 1.4 cm left lower-lobe nodule, pleural metastasis in the left oblique fissure, and left hilar lymphadenopathy. She was not considered a surgical candidate. An MRI of the head did not reveal metastatic disease. The patient has received 4 Gy of a prescribed 60 Arias with an intensity modulated radiotherapy plan utilizing a step and shoot treatment technique. She has been prescribed carboplatin (AUC 2) and paclitaxel (50 mg/m???) weekly during therapy. Upon review of systems, she denied pulmonary symptoms. On physical examination, the patient weighed 177 lbs. Her temperature was 98 ???F and the blood pressure was 140/79 mmHg. The pulse was 94 bpm and her respiratory rate was 18. Oxygen saturation while breathing room air was 98%. Continue thoracic radiotherapy as prescribed. Signed by: Flash Araiza 01/02/2023 8:55:00 AM
[2023-01-02 09:08] VITALS: BP 139/80; PULSE 18; RESP 16; TEMP 36.1; O2SAT 99
[2023-01-02 09:42] LABS: Basophils % 0.8 %; Eosinophils # 0.2 10^3/uL (0.0-0.8); Eosinophils % 4.1 %; Hematocrit 35.7 % (37.0-47.0); Hemoglobin 11.7 g/dL (11.5-15.3); Lymphocytes % 18.4 %; Mean Corpuscular HGB Conc 32.8 g/dL (30.0-36.0); Mean Corpuscular Hemoglobin 30.5 pg (28.0-34.0); Mean Corpuscular Volume 93.2 fl (81-99); Mean Platelet Volume 8.8 fL (7.4-10.4); Monocytes # 0.4 10^3/uL (0.2-0.9); Monocytes % 6.8 %; Neutrophils # 3.58 10^3/uL (1.8-7.7); Neutrophils % 69.5 %; Nucleated Red Blood Cells % 0 %; Platelet Count 287 10^3/cmm (130-400); Red Blood Count 3.83 10^6/uL (4.1-5.3); Red Cell Distribution Width 13.2 % (12.1-15.1); White Blood Count 5.2 10^3/uL (4.0-10.0)
[2023-01-02 10:08] LABS: Alanine Aminotransferase 13 U/L (0-33); Alkaline Phosphatase 39 U/L (35-105); Aspartate Amino Transferase 14 U/L (0-32); Blood Urea Nitrogen 15 mg/dL (6-20); Calcium 8.4 mg/dL (8.5-10.5); Carbon Dioxide 25 mmol/L (22-29); Chloride 106 mmol/L (98-107); Globulin 2.6 g/dL (1.3-4.6); Glucose 99 mg/dL (65-115); Osmolality Calculated 293 mOsm/kg (285-295); Sodium 141 mmol/L (136-145); Total Bilirubin 0.2 mg/dL (0.15-1.2); Total Protein 6.6 g/dL (6.6-8.7)
[2023-01-02] MEDS: sodium chloride 0.9% (100 ml) 100 ML 75 ML (12:01)
[2023-01-02] MEDS: pantoprazole 40 mg SDV IVP (12:01)
[2023-01-02] MEDS: ondansetron 2 mg/ML SDV 2 mL 8 MG IVP (12:04)
[2023-01-02] MEDS: famotidine 20 mg/2 mL INJ IVP (12:06)
[2023-01-02] MEDS: diphenhydrAMINE 50 mg/mL SDV 1mL 25 MG IVP (12:09)
[2023-01-02] MEDS: acetaminophen 325 mg Tablet 650 MG PO (12:12)
[2023-01-02] MEDS: PACLitaxeL 90 MG in sodium chloride 0.9%(non-DEHP) 250 ML 265 MG IV (12:51)
[2023-01-02] MEDS: CARBOplatin 300 MG in sodium chloride 0.9% 500 ML 530 MG IV (14:08)
[2023-01-02 15:12] VITALS: BP 120/80; PULSE 87; RESP 16; TEMP 36.7; O2SAT 94
[2023-01-02 18:41] LABS: Magnesium 2.1 mg/dL (1.7-2.3); Thyroid Stimulating Hormone 1.88 uIU/mL (0.27-4.20)
== END 2023-01-09 08:47 | disposition home or self-care (01) ==
PROVIDERS: Internal Medicine Hematology & Oncology; Nurse Practitioner Family; PCP Physician Assistant; Visit Provider Radiology Radiation Oncology
DX: C34.32 Malignant neoplasm of lower lobe, left bronchus or lung (principal)
CPT/HCPCS: 77300; 77301; 77334; 77336; 77338; 77386; 77470; 80053; 83735; 84443; 85025; 96375; 96413; 96417; C9113; J1100; J1200; J1642; J2405; J2469; J3490; J7040; J7050; J9045; J9267; Q9967

== ENCOUNTER 2023-01-10 23:39 | Oncology outpatient (recurring) (ONCR) | payer BC, MEDICAID, SELFPAY | END 2023-01-18 23:59 | disposition home or self-care (01) | LOC: ONCMED 02-09 23:39 | PROVIDERS: PCP Physician Assistant; Visit Provider Physician Assistant | DX: C34.32 Malignant neoplasm of lower lobe, left bronchus or lung (principal); Z51.0 Encounter for antineoplastic radiation therapy; Z79.899 Other long term (current) drug therapy; Z87.891 Personal history of nicotine dependence; Z95.828 Presence of other vascular implants and grafts | CPT/HCPCS: 77014; 77386; 77427 ==

== ENCOUNTER 2023-01-18 09:30 | Oncology outpatient (recurring) (ONCR) | payer BC, MEDICAID, SELFPAY ==
[2023-01-09 10:17] LABS: Basophils % 0.5 %; Eosinophils # 0.1 10^3/uL (0.0-0.8); Eosinophils % 2.8 %; Hematocrit 36.8 % (37.0-47.0); Hemoglobin 11.8 g/dL (11.5-15.3); Lymphocytes # 0.6 10^3/uL (0.8-4.8); Lymphocytes % 15.6 %; Mean Corpuscular HGB Conc 32.1 g/dL (30.0-36.0); Mean Corpuscular Hemoglobin 29.7 pg (28.0-34.0); Mean Corpuscular Volume 92.7 fl (81-99); Mean Platelet Volume 8.5 fL (7.4-10.4); Monocytes # 0.4 10^3/uL (0.2-0.9); Monocytes % 8.8 %; Neutrophils # 2.86 10^3/uL (1.8-7.7); Nucleated Red Blood Cells % 0 %; Platelet Count 291 10^3/cmm (130-400); Red Blood Count 3.97 10^6/uL (4.1-5.3); Red Cell Distribution Width 13.3 % (12.1-15.1)
[2023-01-09 10:42] LABS: Alanine Aminotransferase 19 U/L (0-33); Albumin Level 4.3 g/dL (3.5-5.2); Alkaline Phosphatase 39 U/L (35-105); Anion Gap 15.8 (5-19); Aspartate Amino Transferase 13 U/L (0-32); Blood Urea Nitrogen 11 mg/dL (6-20); Calcium 8.4 mg/dL (8.5-10.5); Carbon Dioxide 23 mmol/L (22-29); Chloride 106 mmol/L (98-107); Globulin 2.7 g/dL (1.3-4.6); Glomerular Filtration Rate 129.6 mL/min (90-130); Glucose 114 mg/dL (65-115); Osmolality Calculated 292 mOsm/kg (285-295); Potassium 3.8 mmol/L (3.5-5.1); Sodium 141 mmol/L (136-145); Total Bilirubin 0.3 mg/dL (0.15-1.2)
--- NOTE | 2023-01-09 12:36 | ONCRAD TMN_ITS ---
Radiation Oncology Weekly Treatment Management Patient: Maria L Wagner MR#: [id number] : 1970 Attending Physician: Antonio Farah M.D. Date of Service: 01/09/2023 Referring Physician(s) : Luis Prasad M.D. Diagnosis: C34.30 - Malignant neoplasm of lower lobe, unspecified bronchus or lung, Diagnosed 10/11/2022 (Active) Stage IIIA, T3, N1, M0 Radiotherapy to date: Course: Lung 2022, Treatment Site: Lung Ca ??? Lt, Ref. ID: [id number], Energy: 6X, Dose/Fx (cGy): 200, #Fx: , Dose Correction (cGy): 0, Total Dose (cGy): 2,200, Start Date: 12/26/2022, Elapsed Days: 14 Reason for visit: The patient is being seen today as part of their regularly scheduled weekly on treatment visits to assess for acute toxicities from radiotherapy. Review of Systems: Doing well overall. No sore throat. Breathing ok. Naps daily x 1 to 1 ??? hours a day. No smoking x 2 years. Vital Signs: Physical Exam: omitted Imaging: Radiation therapy imaging related to accurate target localization (i.e. KV, MV and CBCT) was reviewed. Appropriate changes, if any, were made to ensure treatment accuracy. Plan: Good tolerance of treatment. Continue as planned. Signed by: Antonio Farah 01/09/2023 12:33:57 PM
[2023-01-10 07:27] VITALS: BP 151/85; PULSE 88; RESP 16; TEMP 36.5; O2SAT 97
[2023-01-10] MEDS: sodium chloride 0.9% 250 ML 75 ML IV (08:25)
[2023-01-10] MEDS: acetaminophen 325 mg Tablet 650 MG PO (08:26)
[2023-01-10] MEDS: pantoprazole 40 mg SDV IVP (08:27)
[2023-01-10] MEDS: palonosetron 0.25 mg/5 mL SDV IVP (08:31)
[2023-01-10] MEDS: famotidine 20 mg/2 mL INJ IVP (08:33)
[2023-01-10] MEDS: diphenhydrAMINE 50 mg/mL SDV 1mL 25 MG IVP (08:36)
[2023-01-10] MEDS: dexamethasone 20 MG in sodium chloride 0.9% 50 ML 188 MG IV (08:41)
[2023-01-10] MEDS: fosaprepitant 150 MG in sodium chloride 0.9% 150 ML 300 MG IV (08:57)
[2023-01-10] MEDS: PACLitaxeL 90 MG in sodium chloride 0.9%(non-DEHP) 250 ML 265 MG IV (09:24)
[2023-01-10] MEDS: CARBOplatin 300 MG in sodium chloride 0.9% 500 ML 530 MG IV (10:29)
[2023-01-10 11:45] VITALS: BP 141/80; PULSE 85; RESP 16; TEMP 36.2; O2SAT 96
--- NOTE | 2023-01-17 09:16 | ONCRAD TMN_ITS ---
Radiation Oncology Treatment Management Note Patient Name: Kristy Lisa Date of : 1970 Date of Service: 01/17/2023 Attending Physician: Flash Araiza M.D. Kristy Lisa is a 52 year old white female recently diagnosed with a clinical stage IIIA (T3N1) non-small cell lung cancer. She was evaluated by her primary care physician in June of 2022 for dyspnea. Chest radiograph identified a 1.8 cm soft tissue nodule in the lower left lung. A thoracic CT scan ordered on August 10, 2022 described a 1.2 cm x 1.1 cm left lower-lobe nodule that abuts the pleura and benign intrapulmonary lymph nodes along the left major fissure. A PET scan completed on August 27, 2022 demonstrated a 0.9 cm x 1.2 cm left lower-lobe nodule (SUV 2.1) and left alexy-hilar lymphadenopathy measuring 1.6 cm x 1.8 cm (SUV 4.1). A bronchoscopy with endobronchial ultrasound-guided biopsy performed on October 11, 2022 by Erik Wei M.D. A needle aspiration of an 11L lymph node a squamous cell carcinoma. She was referred to [facility] in [place], [place]. A thoracic CT scan revealed the 1.4 cm left lower-lobe nodule, pleural metastasis in the left oblique fissure, and left hilar lymphadenopathy. She was not considered a surgical candidate. An MRI of the head did not reveal metastatic disease. The patient has received 32 Gy of a prescribed 60 Arias with an intensity modulated radiotherapy plan utilizing a step and shoot treatment technique. She has been prescribed carboplatin (AUC 2) and paclitaxel (50 mg/m???) weekly during therapy. Upon review of systems, she denied changes in her pulmonary symptoms. On physical examination, the patient weighed 173 lbs. Her temperature was 97.6 ???F and the blood pressure was 142/80 mmHg. The pulse was 75 bpm and her respiratory rate was 18. Oxygen saturation while breathing room air was 99%. Auscultation of the posterior lung mcfadden revealed bronchovesicular breath sounds. Continue thoracic radiotherapy as prescribed. Signed by: Flash Araiza 01/17/2023 9:15:06 AM
[2023-01-18 09:25] VITALS: BP 128/84; PULSE 91; RESP 18; TEMP 36.6; O2SAT 98
[2023-01-18 09:40] LABS: Basophils % 0.7 %; Eosinophils # 0.1 10^3/uL (0.0-0.8); Eosinophils % 1.4 %; Hematocrit 35.4 % (37.0-47.0); Hemoglobin 11.5 g/dL (11.5-15.3); Lymphocytes # 0.4 10^3/uL (0.8-4.8); Lymphocytes % 9.8 %; Mean Corpuscular HGB Conc 32.5 g/dL (30.0-36.0); Mean Corpuscular Volume 92.4 fl (81-99); Mean Platelet Volume 8.3 fL (7.4-10.4); Monocytes # 0.5 10^3/uL (0.2-0.9); Monocytes % 10.2 %; Neutrophils # 3.42 10^3/uL (1.8-7.7); Neutrophils % 77.4 %; Nucleated Red Blood Cells % 0 %; Platelet Count 195 10^3/cmm (130-400); Red Blood Count 3.83 10^6/uL (4.1-5.3); Red Cell Distribution Width 13.5 % (12.1-15.1); White Blood Count 4.4 10^3/uL (4.0-10.0)
[2023-01-18 10:01] LABS: Alanine Aminotransferase 18 U/L (0-33); Albumin Level 4.1 g/dL (3.5-5.2); Alkaline Phosphatase 42 U/L (35-105); Aspartate Amino Transferase 19 U/L (0-32); Blood Urea Nitrogen 11 mg/dL (6-20); Calcium 8.1 mg/dL (8.5-10.5); Carbon Dioxide 24 mmol/L (22-29); Chloride 107 mmol/L (98-107); Globulin 2.9 g/dL (1.3-4.6); Glucose 115 mg/dL (65-115); Osmolality Calculated 286 mOsm/kg (285-295); Sodium 138 mmol/L (136-145); Total Bilirubin 0.2 mg/dL (0.15-1.2)
[2023-01-18] MEDS: sodium chloride 0.9% 250 ML 75 ML IV (13:20)
[2023-01-18] MEDS: pantoprazole 40 mg SDV IVP (13:21)
[2023-01-18] MEDS: famotidine 20 mg/2 mL INJ IVP (13:23)
[2023-01-18] MEDS: diphenhydrAMINE 50 mg/mL SDV 1mL 25 MG IVP (13:27)
[2023-01-18] MEDS: fosaprepitant 150 MG in sodium chloride 0.9% 50 ML, sodium chloride 0.9% (100 ml) 100 ML 300 MG IV (13:30)
[2023-01-18] MEDS: dexamethasone 20 MG in sodium chloride 0.9% 50 ML 188 MG IV (14:16)
[2023-01-18] MEDS: PACLitaxeL 90 MG in sodium chloride 0.9%(non-DEHP) 250 ML 265 MG IV (14:29)
[2023-01-18] MEDS: CARBOplatin 300 MG in sodium chloride 0.9% 500 ML 530 MG IV (15:33)
[2023-01-18 16:37] VITALS: BP 124/73; PULSE 87; RESP 16; TEMP 36.1; O2SAT 95
== END 2023-01-18 23:59 | disposition home or self-care (01) ==
PROVIDERS: Nurse Practitioner; Nurse Practitioner Family; PCP Physician Assistant; Visit Provider Radiology Radiation Oncology
DX: C34.32 Malignant neoplasm of lower lobe, left bronchus or lung (principal); Z51.0 Encounter for antineoplastic radiation therapy; Z51.11 Encounter for antineoplastic chemotherapy; Z79.899 Other long term (current) drug therapy; Z87.891 Personal history of nicotine dependence; Z95.828 Presence of other vascular implants and grafts
CPT/HCPCS: 77336; 77386; 80053; 85025; 96367; 96375; 96413; 96417; C9113; J1100; J1200; J1453; J1642; J2469; J3490; J7040; J7050; J9045; J9267

== ENCOUNTER 2023-02-07 07:30 | Oncology outpatient (recurring) (ONCR) | payer BC, MEDICAID, SELFPAY ==
--- NOTE | 2023-01-23 09:10 | ONCRAD TMN_ITS ---
Radiation Oncology Treatment Management Note Patient Name: Kristy Lisa Date of : 1970 Date of Service: 01/23/2023 Attending Physician: Flash Araiza M.D. Kristy Lisa is a 52 year old white female recently diagnosed with a clinical stage IIIA (T3N1) non-small cell lung cancer. She was evaluated by her primary care physician in June of 2022 for dyspnea. Chest radiograph identified a 1.8 cm soft tissue nodule in the lower left lung. A thoracic CT scan ordered on August 10, 2022 described a 1.2 cm x 1.1 cm left lower-lobe nodule that abuts the pleura and benign intrapulmonary lymph nodes along the left major fissure. A PET scan completed on August 27, 2022 demonstrated a 0.9 cm x 1.2 cm left lower-lobe nodule (SUV 2.1) and left alexy-hilar lymphadenopathy measuring 1.6 cm x 1.8 cm (SUV 4.1). A bronchoscopy with endobronchial ultrasound-guided biopsy performed on October 11, 2022 by Erik Wei M.D. A needle aspiration of an 11L lymph node a squamous cell carcinoma. She was referred to [facility] in [place], [place]. A thoracic CT scan revealed the 1.4 cm left lower-lobe nodule, pleural metastasis in the left oblique fissure, and left hilar lymphadenopathy. She was not considered a surgical candidate. An MRI of the head did not reveal metastatic disease. The patient has received 40 Gy of a prescribed 60 Arias with an intensity modulated radiotherapy plan utilizing a step and shoot treatment technique. She has been prescribed carboplatin (AUC 2) and paclitaxel (50 mg/m???) weekly during therapy. Upon review of systems, she denied pulmonary symptoms. On physical examination, the patient weighed 174 lbs. Her temperature was 97 ???F and the blood pressure was 128/65 mmHg. The pulse was 87 bpm and her respiratory rate was 16. Oxygen saturation while breathing room air was 99%. Auscultation of the revealed bronchovesicular breath sounds. Continue thoracic radiotherapy as planned. Signed by: Dr. Flash Aariza 01/23/2023 9:05:20 AM
[2023-01-25 08:49] VITALS: BP 122/81; PULSE 88; RESP 18; TEMP 36.6; O2SAT 97
[2023-01-25 09:10] LABS: Basophils % 0.3 %; Eosinophils # 0.1 10^3/uL (0.0-0.8); Eosinophils % 1.9 %; Hematocrit 35.6 % (37.0-47.0); Hemoglobin 11.6 g/dL (11.5-15.3); Lymphocytes # 0.4 10^3/uL (0.8-4.8); Lymphocytes % 10.5 %; Mean Corpuscular HGB Conc 32.6 g/dL (30.0-36.0); Mean Corpuscular Hemoglobin 30.4 pg (28.0-34.0); Mean Corpuscular Volume 93.4 fl (81-99); Mean Platelet Volume 8.5 fL (7.4-10.4); Monocytes # 0.3 10^3/uL (0.2-0.9); Monocytes % 8.1 %; Neutrophils # 2.92 10^3/uL (1.8-7.7); Neutrophils % 78.9 %; Nucleated Red Blood Cells % 0 %; Platelet Count 177 10^3/cmm (130-400); Red Blood Count 3.81 10^6/uL (4.1-5.3); White Blood Count 3.7 10^3/uL (4.0-10.0)
[2023-01-25 09:42] LABS: Alanine Aminotransferase 18 U/L (0-33); Albumin Level 4.2 g/dL (3.5-5.2); Alkaline Phosphatase 40 U/L (35-105); Aspartate Amino Transferase 14 U/L (0-32); Blood Urea Nitrogen 15 mg/dL (6-20); Calcium 8.7 mg/dL (8.5-10.5); Carbon Dioxide 24 mmol/L (22-29); Chloride 105 mmol/L (98-107); Globulin 2.5 g/dL (1.3-4.6); Glomerular Filtration Rate 87.9 mL/min (90-130); Glucose 111 mg/dL (65-115); Osmolality Calculated 292 mOsm/kg (285-295); Sodium 140 mmol/L (136-145); Total Bilirubin 0.2 mg/dL (0.15-1.2); Total Protein 6.7 g/dL (6.6-8.7)
--- NOTE | 2023-01-25 09:49 | PC.PHAR ---
CARBOPLATIN NATIONAL SHORTAGE: PROVIDERS WOULD LIKE TO SWICH PATIENT TO CISPLATIN 35/M2 W/ TAXOL WEEKLY X 2-3 DOSES. WILL BUILD REGIMEN AND SEND FOR PA HALLIE BAZZI
[2023-01-25] MEDS: sodium chloride 0.9% 250 ML 75 ML IV (10:37)
[2023-01-25] MEDS: dexamethasone 20 MG in sodium chloride 0.9% 50 ML 188 MG IV (12:15)
[2023-01-25] MEDS: acetaminophen 325 mg Tablet 650 MG PO (12:28)
[2023-01-25] MEDS: palonosetron 0.25 mg/5 mL SDV IVP (12:37)
[2023-01-25] MEDS: famotidine 20 mg/2 mL INJ IVP (12:38)
[2023-01-25] MEDS: diphenhydrAMINE 50 mg/mL SDV 1mL 25 MG IVP (12:40)
[2023-01-25] MEDS: fosaprepitant 150 MG in sodium chloride 0.9% 150 ML 300 MG IV (12:42)
[2023-01-25] MEDS: PACLitaxeL 90 MG in sodium chloride 0.9%(non-DEHP) 250 ML 265 MG IV (13:08)
[2023-01-25] MEDS: FUROsemide 10 mg/mL SDV 2mL 20 MG IVP (15:28)
[2023-01-25] MEDS: potassium chloride 20 MEQ in sodium chloride 0.9% 500 ML 500 MEQ IV (15:31)
[2023-01-25 16:19] VITALS: BP 131/78; PULSE 78; RESP 16; TEMP 36.4; O2SAT 97
--- NOTE | 2023-01-30 09:06 | ONCRAD TMN_ITS ---
Radiation Oncology Treatment Management Note Patient Name: Kristy Lisa Date of : 1970 Date of Service: 01/30/2023 Attending Physician: Flash Araiza M.D. Kristy Lisa is a 52 year old white female recently diagnosed with a clinical stage IIIA (T3N1) non-small cell lung cancer. She was evaluated by her primary care physician in June of 2022 for dyspnea. Chest radiograph identified a 1.8 cm soft tissue nodule in the lower left lung. A thoracic CT scan ordered on August 10, 2022 described a 1.2 cm x 1.1 cm left lower-lobe nodule that abuts the pleura and benign intrapulmonary lymph nodes along the left major fissure. A PET scan completed on August 27, 2022 demonstrated a 0.9 cm x 1.2 cm left lower-lobe nodule (SUV 2.1) and left alexy-hilar lymphadenopathy measuring 1.6 cm x 1.8 cm (SUV 4.1). A bronchoscopy with endobronchial ultrasound-guided biopsy performed on October 11, 2022 by Erik Wei M.D. A needle aspiration of an 11L lymph node a squamous cell carcinoma. She was referred to [facility] in [place], [place]. A thoracic CT scan revealed the 1.4 cm left lower-lobe nodule, pleural metastasis in the left oblique fissure, and left hilar lymphadenopathy. She was not considered a surgical candidate. An MRI of the head did not reveal metastatic disease. The patient has received 50 Gy of a prescribed 60 Arias with an intensity modulated radiotherapy plan utilizing a step and shoot treatment technique. She has been prescribed carboplatin (AUC 2) and paclitaxel (50 mg/m???) weekly during therapy. Upon review of systems, she described fatigue. On physical examination, the patient weighed 177 lbs. Her temperature was 97.3 ???F and the blood pressure was 127/59 mmHg. The pulse was 92 bpm and her respiratory rate was 18. Oxygen saturation while breathing room air was 99%. Auscultation revealed bronchovesicular breath sounds. Continue thoracic radiotherapy as prescribed. Signed by: Dr. Flash Araiza 01/30/2023 9:05:51 AM
[2023-02-01 09:21] VITALS: BP 152/85; PULSE 98; RESP 18; TEMP 35.9; O2SAT 99
[2023-02-01 09:31] LABS: Basophils % 0.5 %; Eosinophils # 0.1 10^3/uL (0.0-0.8); Eosinophils % 2.7 %; Hematocrit 33.5 % (37.0-47.0); Hemoglobin 10.9 g/dL (11.5-15.3); Lymphocytes # 0.3 10^3/uL (0.8-4.8); Lymphocytes % 13.5 %; Mean Corpuscular HGB Conc 32.5 g/dL (30.0-36.0); Mean Corpuscular Hemoglobin 30.4 pg (28.0-34.0); Mean Corpuscular Volume 93.6 fl (81-99); Mean Platelet Volume 8.4 fL (7.4-10.4); Monocytes # 0.1 10^3/uL (0.2-0.9); Monocytes % 6.3 %; Neutrophils % 76.5 %; Nucleated Red Blood Cells % 0 %; Platelet Count 201 10^3/cmm (130-400); Red Blood Count 3.58 10^6/uL (4.1-5.3); White Blood Count 2.2 10^3/uL (4.0-10.0)
[2023-02-01 09:55] LABS: Alanine Aminotransferase 16 U/L (0-33); Alkaline Phosphatase 40 U/L (35-105); Aspartate Amino Transferase 13 U/L (0-32); Blood Urea Nitrogen 13 mg/dL (6-20); Calcium 8.1 mg/dL (8.5-10.5); Carbon Dioxide 24 mmol/L (22-29); Chloride 105 mmol/L (98-107); Globulin 2.4 g/dL (1.3-4.6); Glomerular Filtration Rate 87.9 mL/min (90-130); Glucose 128 mg/dL (65-115); Osmolality Calculated 292 mOsm/kg (285-295); Sodium 140 mmol/L (136-145); Total Bilirubin 0.2 mg/dL (0.15-1.2); Total Protein 6.4 g/dL (6.6-8.7)
--- NOTE | 2023-02-06 09:21 | ONCRAD TMN_ITS ---
Radiation Oncology Treatment Management Note Patient Name: Kristy Lisa Date of : 1970 Date of Service: 02/06/2023 Attending Physician: Flash Araiza M.D. Kristy Lisa is a 52 year old white female recently diagnosed with a clinical stage IIIA (T3N1) non-small cell lung cancer. She was evaluated by her primary care physician in June of 2022 for dyspnea. Chest radiograph identified a 1.8 cm soft tissue nodule in the lower left lung. A thoracic CT scan ordered on August 10, 2022 described a 1.2 cm x 1.1 cm left lower-lobe nodule that abuts the pleura and benign intrapulmonary lymph nodes along the left major fissure. A PET scan completed on August 27, 2022 demonstrated a 0.9 cm x 1.2 cm left lower-lobe nodule (SUV 2.1) and left alexy-hilar lymphadenopathy measuring 1.6 cm x 1.8 cm (SUV 4.1). A bronchoscopy with endobronchial ultrasound-guided biopsy performed on October 11, 2022 by Erik Wei M.D. A needle aspiration of an 11L lymph node a squamous cell carcinoma. She was referred to [facility] [place] [facility] in [place], [place]. A thoracic CT scan revealed the 1.4 cm left lower-lobe nodule, pleural metastasis in the left oblique fissure, and left hilar lymphadenopathy. She was not considered a surgical candidate. An MRI of the head did not reveal metastatic disease. The patient has received 50 Gy of a prescribed 60 Arias with an intensity modulated radiotherapy plan utilizing a step and shoot treatment technique. She has been prescribed carboplatin (AUC 2) and paclitaxel (50 mg/m???) weekly during therapy. Upon review of systems, she did not describe any new complaints. On physical examination, the patient weighed 179 lbs. Her temperature was 97 ???F and the blood pressure was 136/60 mmHg. The pulse was 89 bpm and her respiratory rate was 16. Oxygen saturation while breathing room air was 99%. Continue thoracic radiotherapy as planned. Signed by: Dr. Flash Araiza 02/06/2023 9:19:44 AM
--- NOTE | 2023-02-06 09:22 | N.ONRD TS_ITS ---
Radiation OncologyTreatment Summary Patient Name: Kristy Lisa Date of : 1970 Date of Service: 02/06/2023 Attending Physician: Flash Araiza M.D. Kristy Lisa has completed definitive thoracic radiotherapy for the management of a clinical stage IIIA (T3N1) non-small cell lung cancer. She was evaluated by her primary care physician in June of 2022 for dyspnea. Chest radiograph identified a 1.8 cm soft tissue nodule in the lower left lung. A thoracic CT scan ordered on August 10, 2022 described a 1.2 cm x 1.1 cm left lower-lobe nodule that abuts the pleura and benign intrapulmonary lymph nodes along the left major fissure. A PET scan completed on August 27, 2022 demonstrated a 0.9 cm x 1.2 cm left lower-lobe nodule (SUV 2.1) and left alexy-hilar lymphadenopathy measuring 1.6 cm x 1.8 cm (SUV 4.1). A bronchoscopy with endobronchial ultrasound-guided biopsy performed on October 11, 2022 by Erik Wei M.D. A needle aspiration of an 11L lymph node a squamous cell carcinoma. She was referred to [facility] in [place], [place]. A thoracic CT scan revealed the 1.4 cm left lower-lobe nodule, pleural metastasis in the left oblique fissure, and left hilar lymphadenopathy. She was not considered a surgical candidate. An MRI of the head did not reveal metastatic disease. Thoracic radiation therapy was delivered between the dates of December 26, 2022 through February 06, 2023. A prescribed dose of 60 Gy was delivered in 30 fractions encompassing 43 elapsed days. The left lower-lobe mass and left hilar lymphadenopathy were treated utilizing an intensity modulated radiotherapy plan with a step and shoot treatment technique. The plan required six gantry angles (20???, 60???, 100???, 140???, 180???, and 340???) replicating an arc. The collimator rotation 0???. The field sizes spanned between 8.3 cm x 12 cm to 11.6 cm x 13 cm. The SSDs measured a minimum of 83.9 cm to a maximum of 92.1 cm. The ports delivered 160 MU, 158 MU, 155 MU, 120 MU, 144 MU, and 132 MU corresponding to the gantry angles described. All treatments were performed with the [id number] linear accelerator and an isocentric technique. The dose was calculated by Anisotropic Analytic Algorithm. A photon energy of 6 MV was prescribed with the plan normalized to deliver 100% of the prescription dose to 95% of the planning target volume. She was prescribed Carboplatin (AUC 2) and Paclitaxel (50 mg/m???) weekly during radiotherapy under the supervision of Luis Prasad M.D. Cisplatin (35 mg/m???) replaced Carboplatin beginning with cycle 5. (December 26, 2022 through February 06, 2023). Signed by: Dr. Flash Araiza 02/06/2023 9:20:46 AM
[2023-02-06 09:32] VITALS: BP 143/84; PULSE 88; RESP 16; TEMP 36.2; O2SAT 98
[2023-02-06 09:33] VITALS: BMI 31.8
[2023-02-06 09:50] LABS: Basophils % 0.5 %; Eosinophils # 0.1 10^3/uL (0.0-0.8); Eosinophils % 2.7 %; Hematocrit 34.1 % (37.0-47.0); Hemoglobin 11.1 g/dL (11.5-15.3); Lymphocytes # 0.3 10^3/uL (0.8-4.8); Lymphocytes % 15.4 %; Mean Corpuscular HGB Conc 32.6 g/dL (30.0-36.0); Mean Corpuscular Hemoglobin 30.7 pg (28.0-34.0); Mean Corpuscular Volume 94.2 fl (81-99); Mean Platelet Volume 8.2 fL (7.4-10.4); Monocytes # 0.3 10^3/uL (0.2-0.9); Monocytes % 11.3 %; Neutrophils # 1.55 10^3/uL (1.8-7.7); Neutrophils % 70.1 %; Nucleated Red Blood Cells % 0 %; Platelet Count 261 10^3/cmm (130-400); Red Blood Count 3.62 10^6/uL (4.1-5.3); Red Cell Distribution Width 15.1 % (12.1-15.1); White Blood Count 2.2 10^3/uL (4.0-10.0)
[2023-02-06 10:00] LABS: Alanine Aminotransferase 25 U/L (0-33); Albumin Level 4.2 g/dL (3.5-5.2); Alkaline Phosphatase 40 U/L (35-105); Anion Gap 13.9 (5-19); Aspartate Amino Transferase 17 U/L (0-32); Blood Urea Nitrogen 11 mg/dL (6-20); Calcium 9.1 mg/dL (8.5-10.5); Carbon Dioxide 24 mmol/L (22-29); Chloride 105 mmol/L (98-107); Globulin 2.7 g/dL (1.3-4.6); Glomerular Filtration Rate 129.6 mL/min (90-130); Glucose 117 mg/dL (65-115); Osmolality Calculated 288 mOsm/kg (285-295); Potassium 3.9 mmol/L (3.5-5.1); Sodium 139 mmol/L (136-145); Total Bilirubin 0.2 mg/dL (0.15-1.2); Total Protein 6.9 g/dL (6.6-8.7)
[2023-02-07 07:40] VITALS: BMI 31.8
[2023-02-07 07:45] VITALS: BP 121/70; PULSE 89; RESP 16; TEMP 36.3; O2SAT 97
[2023-02-07 09:15] VITALS: BP 132/83; PULSE 81; RESP 16; TEMP 36.3; O2SAT 99
== END 2023-02-07 23:59 | disposition home or self-care (01) ==
PROVIDERS: Internal Medicine Hematology & Oncology; Nurse Practitioner Family; PCP Physician Assistant; Visit Provider Radiology Radiation Oncology
DX: C34.32 Malignant neoplasm of lower lobe, left bronchus or lung (principal); Z79.899 Other long term (current) drug therapy; Z87.891 Personal history of nicotine dependence; Z95.828 Presence of other vascular implants and grafts
CPT/HCPCS: 77014; 77336; 77386; 80053; 85025; 96365; 96366; 96367; 96375; 96413; 96417; J1100; J1200; J1453; J1642; J1940; J2469; J3475; J3480; J3490; J7030; J7040; J7050; J9060; J9267

== ENCOUNTER → 2023-02-08 10:21 | Outpatient (BNVA) | payer BC, MEDICAID, SELFPAY | PROVIDERS: PCP Physician Assistant; Visit Provider Nurse Practitioner Women's Health | DX: N93.9 Abnormal uterine and vaginal bleeding, unspecified (principal) | CPT/HCPCS: 76830 ==

== ENCOUNTER 2023-02-08 11:12 | Oncology outpatient (recurring) (ONCR) | payer BC, MEDICAID, SELFPAY | END 2023-02-17 23:59 | disposition home or self-care (01) | PROVIDERS: PCP Physician Assistant; Visit Provider Internal Medicine Hematology & Oncology | DX: C34.32 Malignant neoplasm of lower lobe, left bronchus or lung (principal) ==

== ENCOUNTER 2023-02-15 16:01 | Outpatient (CLI) | payer BC, MEDICAID, SELFPAY ==
--- NOTE | 2023-02-15 16:30 | CTR_ITS ---
PROCEDURE INFORMATION: Exam: CT Chest With Contrast; Diagnostic Exam date and time: 02/15/2023 4:25 PM Age: 52 years old Clinical indication: Prior chemotherapy - left lower lung / unknown. Prior radiation therapy - left lower lung/ unknown. Condition or disease; Lung condition and disease; Cancer of the lung; Lobe, lower; Primary cancer: Lung, left lung; Follow-up oncological assessment; Prior surgery; Surgery date: 6+ months; Surgery type: Port; Patient HX: Follow up lung cancer; Additional info: Follow up, to be completed in 2 weeks TECHNIQUE: Imaging protocol: Diagnostic computed tomography of the chest with contrast. Radiation optimization: All CT scans at this facility use at least one of these dose optimization techniques: automated exposure control; mA and/or kV adjustment per patient size (includes targeted exams where dose is matched to clinical indication); or iterative reconstruction. Contrast material: OMNIPAQUE 350; Contrast volume: 95 ml; Contrast route: INTRAVENOUS (IV); REPORTING DATA: Count of CT and Cardiac NM exams in prior 12 months: This patient has received 4 known CTs and 0 known cardiac nuclear medicine studies in the 12 months prior to the current study. COMPARISON: CT chest w con* [id number] 08/10/2022 3:11 PM RADIATION DOSE METRICS: Total DLP (mGy-cm): 299.37 FINDINGS: Tubes, catheters and devices: There is a right chest MediPort present with its tip in the SVC, central. Lungs: Unremarkable. No consolidation. No masses. Pleural spaces: Nodule in the left lower lobe abutting the pleura on series 8, image 35 measures 1.2 x 1.1 cm which is unchanged. Stable ill-defined nodules surrounding the dominant nodule largest superiorly measuring 7 mm on series 8, image 34 which is unchanged. Small linear nodular densities in the left major fissure likely intrapulmonary lymph nodes are unchanged. The lungs are otherwise clear. Heart: Unremarkable. No cardiomegaly. No pericardial effusion. Coronary arteries: No significant atherosclerosis. Lymph nodes: Subcentimeter mediastinal lymph nodes are unchanged and not pathologically enlarged by CT size criteria. Vasculature: Unremarkable. No aortic aneurysm. Liver: Liver cysts are unchanged. Bones/joints: Straightening of the thoracic spine with mild curvature is unchanged. Soft tissues: Unremarkable. CT/CT chest w con* [id number] IMPRESSION: Stable left lower lobe pulmonary nodule measuring 1.2 cm maximally with stable adjacent small satellite nodules. No new site of disease identified.
[2023-02-15] MEDS: iohexol 350 mg/mL 500 mL Btl (per mL) IV (16:40)
== END 2023-02-15 16:02 | disposition home or self-care (01) ==
LOC: RAD 16:03
PROVIDERS: PCP Physician Assistant; Visit Provider Internal Medicine Hematology & Oncology
DX: C34.92 Malignant neoplasm of unspecified part of left bronchus or lung (principal)
CPT/HCPCS: 71260; Q9967

== ENCOUNTER 2023-03-09 08:58 | Oncology outpatient (recurring) (ONCR) | payer BC, MEDICAID, SELFPAY ==
[2023-02-23 15:21] VITALS: BP 126/85; PULSE 102; RESP 18; TEMP 36.6; O2SAT 97
[2023-02-23 15:38] LABS: Basophils % 0.6 %; Eosinophils # 0.2 10^3/uL (0.0-0.8); Eosinophils % 3.3 %; Hematocrit 35.3 % (37.0-47.0); Hemoglobin 11.7 g/dL (11.5-15.3); Lymphocytes # 0.6 10^3/uL (0.8-4.8); Lymphocytes % 11.6 %; Mean Corpuscular HGB Conc 33.1 g/dL (30.0-36.0); Mean Corpuscular Hemoglobin 31.7 pg (28.0-34.0); Mean Corpuscular Volume 95.7 fl (81-99); Monocytes # 0.4 10^3/uL (0.2-0.9); Monocytes % 7.9 %; Neutrophils # 4.14 10^3/uL (1.8-7.7); Neutrophils % 76.2 %; Nucleated Red Blood Cells % 0 %; Platelet Count 373 10^3/cmm (130-400); Red Blood Count 3.69 10^6/uL (4.1-5.3); Red Cell Distribution Width 17.5 % (12.1-15.1); White Blood Count 5.4 10^3/uL (4.0-10.0)
[2023-02-23 15:58] LABS: Alanine Aminotransferase 14 U/L (0-33); Albumin Level 4.2 g/dL (3.5-5.2); Alkaline Phosphatase 48 U/L (35-105); Aspartate Amino Transferase 14 U/L (0-32); Blood Urea Nitrogen 8 mg/dL (6-20); Calcium 8.9 mg/dL (8.5-10.5); Carbon Dioxide 25 mmol/L (22-29); Chloride 107 mmol/L (98-107); Globulin 2.9 g/dL (1.3-4.6); Glucose 108 mg/dL (65-115); Osmolality Calculated 293 mOsm/kg (285-295); Sodium 142 mmol/L (136-145); Total Bilirubin 0.2 mg/dL (0.15-1.2); Total Protein 7.1 g/dL (6.6-8.7)
[2023-03-07 08:59] VITALS: BP 130/85; PULSE 81; RESP 18; TEMP 36.9; O2SAT 95
[2023-03-07 09:11] LABS: Basophils % 0.8 %; Eosinophils # 0.6 10^3/uL (0.0-0.8); Eosinophils % 11.9 %; Hematocrit 36.2 % (37.0-47.0); Lymphocytes # 0.5 10^3/uL (0.8-4.8); Lymphocytes % 9.4 %; Mean Corpuscular HGB Conc 33.1 g/dL (30.0-36.0); Mean Corpuscular Volume 96.5 fl (81-99); Mean Platelet Volume 8.3 fL (7.4-10.4); Monocytes # 0.5 10^3/uL (0.2-0.9); Monocytes % 9.8 %; Neutrophils # 3.46 10^3/uL (1.8-7.7); Neutrophils % 67.7 %; Nucleated Red Blood Cells % 0 %; Platelet Count 322 10^3/cmm (130-400); Red Blood Count 3.75 10^6/uL (4.1-5.3); Red Cell Distribution Width 17.5 % (12.1-15.1); White Blood Count 5.1 10^3/uL (4.0-10.0)
[2023-03-07 09:38] LABS: Alanine Aminotransferase 19 U/L (0-33); Alkaline Phosphatase 45 U/L (35-105); Anion Gap 13.1 (5-19); Aspartate Amino Transferase 19 U/L (0-32); Blood Urea Nitrogen 10 mg/dL (6-20); Calcium 8.3 mg/dL (8.5-10.5); Carbon Dioxide 23 mmol/L (22-29); Chloride 106 mmol/L (98-107); Globulin 2.8 g/dL (1.3-4.6); Glucose 113 mg/dL (65-115); Osmolality Calculated 286 mOsm/kg (285-295); Potassium 4.1 mmol/L (3.5-5.1); Sodium 138 mmol/L (136-145); Thyroid Stimulating Hormone 2.07 uIU/mL (0.27-4.20); Total Bilirubin 0.2 mg/dL (0.15-1.2); Total Protein 6.8 g/dL (6.6-8.7)
[2023-03-07] MEDS: sodium chloride 0.9% 250 ML 50 ML IV (11:30)
[2023-03-07 13:10] VITALS: BP 130/74; PULSE 90; RESP 18; TEMP 36.2; O2SAT 96
[2023-03-07 15:06] LABS: Hepatitis A Antibody IgM Non-Reactive (Nonreactive); Hepatitis B Core AB, Total Non-Reactive (Nonreactive); Hepatitis B Surface Antigen Non-Reactive (Nonreactive); Hepatitis C Virus Antibody Non-Reactive (Nonreactive)
[2023-03-07 15:53] LABS: Hepatitis B Surface AB 3.8 (11.5-1000)
--- NOTE | 2023-03-09 11:31 | ONCRAD EPV_ITS ---
Radiation Oncology Established Patient Visit Patient: Kristy Lisa [id number] : 1970> Age: 52> Sex: Female> Dictated by: Issa Garcias Date of Service: 03/09/2023 Referring Physician(s) : Luis Prasad Diagnosis: C34.30 - Malignant neoplasm of lower lobe, unspecified bronchus or lung, Diagnosed 10/11/2022 (Active) Stage IIIA, T3, N1, M0 Radiotherapy to Date: Course: Lung 2022, Treatment Site: Lung Ca ??? Lt, Ref. ID: [id number], Energy: 6X, Dose/Fx (cGy): 200, #Fx: 30 / 30, Dose Correction (cGy): 0, Total Dose (cGy): 6,000, Start Date: 12/26/2022, End Date: 02/06/2023, Elapsed Days: 42, Current History: Current Complaints / Review of Systems: . Ms. Lisa returns for follow-up. She underwent combination chemotherapy and radiation for squamous cell carcinoma of the left lung. From December 26 through February 06, 2023 she received 6000 cGy in 30 fractions. She tolerated treatment well. She currently has no complaints. She has started immunotherapy. She denies dyspnea, cough, hemoptysis, sputum production, pleuritic chest pain, loss of appetite, fatigue, or new bone pain. Vital Signs: Performed on 03/09/2023 9:06 AM BMI - 32.24 kg/m2 (high), Height - 63 in, Weight - 182.0 lbs, Temperature - 96.9 f, Pulse - 92 /min, Respiration - 16 /min, O2 Sat - 98 %, Pain - 0, Fatigue - 0 and BP - 139/ 90 mm(hg). Physical Exam: General: Alert and oriented x 3. No acute distress. HEENT: Normocephalic, atraumatic. Extraocular Movements Intact: NECK: Supple without supraclavicular or jugular lymphadenopathy. LUNGS: Clear to auscultation bilaterally without rales, rhonchi or wheeze. HEART: Regular rate and rhythm, normal S1 and S2 without murmur, gallop or rub. MUSCULOSKELETAL: No tenderness or percussion pain over the axial skeleton, scapulae or pelvis. ABDOMEN: Soft, nontender, nondistended without masses or organomegaly. No distention. NEUROLOGIC: Cranial nerves II ???XII are grossly intact. Normal gait, no ataxia. Performance Status: ECOG 0 Lab: None pending. Pathology: Primary, c34.30 - malignant neoplasm of lower lobe, unspecified bronchus or lung, Diagnosed 10/11/2022 (active) stage iiia, t3, n1, m0. Imaging: A follow-up CT before starting immunotherapy showed stable findings. Impression: Doing well. She has no residual side effects or toxicity from concomitant chemotherapy and radiation. She will now have immunotherapy. She has had her first course without any significant side effects. Follow-up will be through medical oncology. Signed by: 03/09/2023 11:30:46 AM <<Signature on File>> Time spent with patient: CPT Code: CPT Code:
== END 2023-03-20 23:59 | disposition home or self-care (01) ==
PROVIDERS: Nurse Practitioner Family; PCP Physician Assistant; Visit Provider Internal Medicine Hematology & Oncology
DX: Z53.9 Procedure and treatment not carried out, unspecified reason (principal)
CPT/HCPCS: 36591; 80053; 84443; 85025; 86705; 86706; 86709; 86803; 87340; 96413; J1642; J7050; J9173

== ENCOUNTER 2023-04-04 09:30 | Oncology outpatient (recurring) (ONCR) | payer BC, MEDICAID, SELFPAY ==
[2023-03-21 09:28] VITALS: BP 124/75; PULSE 100; RESP 18; TEMP 36.6; O2SAT 95
[2023-03-21 09:37] LABS: Basophils # 0.1 10^3/uL (0.0-0.1); Basophils % 1.3 %; Eosinophils # 3.3 10^3/uL (0.0-0.8); Hematocrit 39.2 % (37.0-47.0); Lymphocytes # 0.7 10^3/uL (0.8-4.8); Mean Corpuscular HGB Conc 33.2 g/dL (30.0-36.0); Mean Corpuscular Hemoglobin 32.3 pg (28.0-34.0); Mean Corpuscular Volume 97.3 fl (81-99); Mean Platelet Volume 8.5 fL (7.4-10.4); Monocytes # 0.5 10^3/uL (0.2-0.9); Neutrophils # 3.78 10^3/uL (1.8-7.7); Neutrophils % 45.5 %; Nucleated Red Blood Cells % 0 %; Platelet Count 318 10^3/cmm (130-400); Red Blood Count 4.03 10^6/uL (4.1-5.3); Red Cell Distribution Width 16.2 % (12.1-15.1); White Blood Count 8.3 10^3/uL (4.0-10.0)
[2023-03-21 10:14] LABS: Alanine Aminotransferase 20 U/L (0-33); Alkaline Phosphatase 56 U/L (35-105); Anion Gap 14.2 (5-19); Aspartate Amino Transferase 19 U/L (0-32); Blood Urea Nitrogen 11 mg/dL (6-20); Calcium 9.2 mg/dL (8.5-10.5); Carbon Dioxide 25 mmol/L (22-29); Chloride 105 mmol/L (98-107); Globulin 2.8 g/dL (1.3-4.6); Glucose 133 mg/dL (65-115); Osmolality Calculated 291 mOsm/kg (285-295); Potassium 4.2 mmol/L (3.5-5.1); Sodium 140 mmol/L (136-145); Thyroid Stimulating Hormone 1.46 uIU/mL (0.27-4.20); Total Bilirubin 0.2 mg/dL (0.15-1.2); Total Protein 6.8 g/dL (6.6-8.7)
[2023-03-21] MEDS: sodium chloride 0.9% 250 ML 75 ML IV (12:13)
[2023-03-21 13:30] VITALS: BP 127/80; PULSE 99; RESP 18; TEMP 36.1; O2SAT 98
[2023-04-04 09:27] VITALS: BP 125/79; PULSE 101; RESP 18; TEMP 36.9; O2SAT 97
[2023-04-04 09:28] VITALS: BMI 31.5
[2023-04-04 09:39] LABS: Basophils % 0.7 %; Eosinophils # 1.1 10^3/uL (0.0-0.8); Eosinophils % 19.3 %; Hematocrit 37.9 % (37.0-47.0); Hemoglobin 12.5 g/dL (11.5-15.3); Lymphocytes # 0.5 10^3/uL (0.8-4.8); Lymphocytes % 8.8 %; Mean Corpuscular Hemoglobin 32.1 pg (28.0-34.0); Mean Corpuscular Volume 97.2 fl (81-99); Mean Platelet Volume 8.4 fL (7.4-10.4); Monocytes # 0.5 10^3/uL (0.2-0.9); Monocytes % 9.7 %; Neutrophils # 3.35 10^3/uL (1.8-7.7); Neutrophils % 61.1 %; Nucleated Red Blood Cells % 0 %; Platelet Count 320 10^3/cmm (130-400); Red Cell Distribution Width 14.7 % (12.1-15.1); White Blood Count 5.5 10^3/uL (4.0-10.0)
[2023-04-04 10:23] LABS: Alanine Aminotransferase 14 U/L (0-33); Albumin Level 4.4 g/dL (3.5-5.2); Alkaline Phosphatase 54 U/L (35-105); Anion Gap 13.4 (5-19); Blood Urea Nitrogen 14 mg/dL (6-20); Calcium 8.8 mg/dL (8.5-10.5); Carbon Dioxide 26 mmol/L (22-29); Chloride 108 mmol/L (98-107); Globulin 2.7 g/dL (1.3-4.6); Glucose 126 mg/dL (65-115); Osmolality Calculated 298 mOsm/kg (285-295); Potassium 4.4 mmol/L (3.5-5.1); Sodium 143 mmol/L (136-145); Thyroid Stimulating Hormone 1.28 uIU/mL (0.27-4.20); Total Bilirubin 0.3 mg/dL (0.15-1.2); Total Protein 7.1 g/dL (6.6-8.7)
[2023-04-04 10:30] LABS: Aspartate Amino Transferase 16 U/L (0-32)
[2023-04-04 11:08] VITALS: BP 125/80; PULSE 59; RESP 16; TEMP 36.7; O2SAT 98
[2023-04-04] MEDS: sodium chloride 0.9% 250 ML 75 ML IV (11:30)
[2023-04-04 12:40] VITALS: BP 131/80; PULSE 58; RESP 16; TEMP 36.7; O2SAT 98
== END 2023-04-04 23:59 | disposition home or self-care (01) ==
PROVIDERS: Nurse Practitioner Family; PCP Physician Assistant; Visit Provider Internal Medicine Hematology & Oncology
DX: Z51.11 Encounter for antineoplastic chemotherapy (principal); C34.92 Malignant neoplasm of unspecified part of left bronchus or lung
CPT/HCPCS: 80053; 84443; 85025; 96413; J1642; J7050; J9173

== ENCOUNTER 2023-04-18 08:16 | Oncology outpatient (recurring) (ONCR) | payer BC, MEDICAID, SELFPAY ==
[2023-04-18 08:15] VITALS: BMI 31.3
[2023-04-18 08:16] VITALS: BP 136/75; PULSE 98; RESP 18; TEMP 36.3; O2SAT 96
[2023-04-18 08:29] LABS: Basophils % 0.5 %; Eosinophils # 0.4 10^3/uL (0.0-0.8); Eosinophils % 6.8 %; Hematocrit 38.6 % (36-47); Lymphocytes # 0.5 10^3/uL (0.8-4.8); Lymphocytes % 8.5 %; Mean Corpuscular HGB Conc 32.4 g/dL (30-55); Mean Corpuscular Hemoglobin 32.5 pg (27-33); Mean Corpuscular Volume 100.3 fl (85-98); Mean Platelet Volume 8.1 fL (7.4-10.4); Monocytes # 0.3 10^3/uL (0.2-0.9); Monocytes % 5.2 %; Neutrophils # 5.02 10^3/uL (1.8-7.7); Neutrophils % 78.7 %; Nucleated Red Blood Cells % 0 %; Platelet Count 338 10^3/cmm (157-399); Red Blood Count 3.85 10^6/uL (3.85-5.65); Red Cell Distribution Width 12.9 % (12.1-15.1); White Blood Count 6.37 10^3/uL (3.29-11.43)
[2023-04-18 08:50] LABS: Alanine Aminotransferase 16 U/L (0-33); Albumin Level 4.3 g/dL (3.5-5.2); Alkaline Phosphatase 57 U/L (35-105); Aspartate Amino Transferase 14 U/L (0-32); Blood Urea Nitrogen 15 mg/dL (6-20); Calcium 8.9 mg/dL (8.5-10.5); Carbon Dioxide 25 mmol/L (22-29); Chloride 105 mmol/L (98-107); Globulin 2.9 g/dL (1.3-4.6); Glomerular Filtration Rate 87.9 mL/min (90-130); Glucose 138 mg/dL (65-115); Osmolality Calculated 291 mOsm/kg (285-295); Sodium 139 mmol/L (136-145); Total Bilirubin 0.3 mg/dL (0.15-1.2); Total Protein 7.2 g/dL (6.6-8.7)
[2023-04-18 12:05] VITALS: BP 133/73; PULSE 85; RESP 16; TEMP 36.8; O2SAT 96
== END 2023-04-20 23:59 | disposition home or self-care (01) ==
PROVIDERS: PCP Physician Assistant; Visit Provider Internal Medicine Medical Oncology
DX: Z51.11 Encounter for antineoplastic chemotherapy (principal); C34.92 Malignant neoplasm of unspecified part of left bronchus or lung
CPT/HCPCS: 80053; 85025; 96413; J1642; J7050; J9173

== ENCOUNTER 2023-05-02 06:11 | Outpatient (CLI) | payer BC, MEDICAID, SELFPAY ==
--- NOTE | 2023-05-02 06:30 | CT_ITS ---
WS: [id number] CT chest w con* [id number] HISTORY: Rule our Pneumonitis TECHNIQUE: Axial imaging performed through the thorax. Coronal and sagittal reformats are submitted. All CT scans at [facility] use at least one of these dose optimization techniques: automated exposure control; mA and/or kV adjustment per patient size (includes targeted exams where dose is mat ched to clinical indication); or iterative reconstruction. CONTRAST: Omnipaque 350; 100 mL IV. DLP: 299.37 mGy COMPARISON: 02/15/2023 Lungs and central airway: New very dense irregular opacification centered at the LEFT hilum extends p redominantly into the LEFT lower lobe but also involves the LEFT upper lobe. Consolidation extends ac ross the fissure. Previously described nodule in the periphery of the LEFT lower lobe is reidentified . The opacification centrally extends to the subpleural nodule in the shape of the nodule has changed . Maximum diameter of the nodule is approximately 11 mm. RIGHT lung is clear. There is a very tiny am ount of pleural fluid and thickening on the LEFT. No mediastinal or hilar lymph nodes. Pleura: Mild LEFT pleural thickening versus fluid. Heart and pericardium: Normal size heart with no pericardial effusion. Mediastinum and artur: LEFT lung consolidation extends into the LEFT hilum. No adenopathy. Vessels: Very mild atherosclerosis aorta Chest wall and lower neck: Right-sided Port-A-Cath. Upper abdomen: Hepatic cysts. No adrenal mass. Osseous structures: Mild straightening of the thoracic kyphosis. IMPRESSION: 1. Large dense consolidation centered at the LEFT hilum and extending predominantly into the LEFT low er lobe but also crosses the fissure into the LEFT upper lobe. Consolidation is contiguous with the n odule in the LEFT lower lobe. Suspect this is pneumonitis related to immunotherapy. 2. No lymph nodes are identified. Subtle lymph nodes would be difficult to identify at the LEFT hilum due to the dense consolidation from the pneumonitis. 3. RIGHT lung is clear. 4. Hepatic cysts.
[2023-05-02] MEDS: iohexol 350 mg/mL 500 mL Btl (per mL) IV (06:38)
[2023-05-02 08:58] LABS: Basophils % 0.3 %; Eosinophils # 0.2 10^3/uL (0.0-0.8); Eosinophils % 3.3 %; Hematocrit 30.7 % (36-47); Lymphocytes # 0.5 10^3/uL (0.8-4.8); Lymphocytes % 8.1 %; Mean Corpuscular HGB Conc 32.6 g/dL (30-55); Mean Corpuscular Hemoglobin 32.3 pg (27-33); Mean Platelet Volume 8.3 fL (7.4-10.4); Monocytes # 0.4 10^3/uL (0.2-0.9); Monocytes % 6.2 %; Neutrophils # 4.75 10^3/uL (1.8-7.7); Neutrophils % 81.9 %; Nucleated Red Blood Cells % 0 %; Platelet Count 317 10^3/cmm (157-399); Red Cell Distribution Width 12.2 % (12.1-15.1)
[2023-05-02 09:24] LABS: Alanine Aminotransferase 21 U/L (0-33); Alkaline Phosphatase 57 U/L (35-105); Anion Gap 12.1 (5-19); Aspartate Amino Transferase 15 U/L (0-32); Blood Urea Nitrogen 11 mg/dL (6-20); Calcium 8.6 mg/dL (8.5-10.5); Carbon Dioxide 23 mmol/L (22-29); Chloride 106 mmol/L (98-107); Globulin 2.8 g/dL (1.3-4.6); Glucose 92 mg/dL (65-115); Osmolality Calculated 283 mOsm/kg (285-295); Potassium 4.1 mmol/L (3.5-5.1); Sodium 137 mmol/L (136-145); Thyroid Stimulating Hormone 2.18 uIU/mL (0.27-4.20); Total Bilirubin 0.2 mg/dL (0.15-1.2); Total Protein 6.8 g/dL (6.6-8.7)
== END 2023-05-02 06:12 | disposition home or self-care (01) ==
LOC: RAD 06:12
PROVIDERS: PCP Physician Assistant; Visit Provider Internal Medicine Medical Oncology
DX: C34.92 Malignant neoplasm of unspecified part of left bronchus or lung (principal)
CPT/HCPCS: 71260; 80053; 84443; 85025; Q9967

== ENCOUNTER 2023-05-03 12:07 | Outpatient (CLI) | payer BC, MEDICAID, SELFPAY ==
--- NOTE | 2023-05-03 12:30 | CT_ITS ---
WS: [id number] CT HEAD WITH AND WITHOUT CONTRAST HISTORY: lightheadedness TECHNIQUE: Noncontrast 3.0 mm axial images obtained from the vertex to the skull base. Additional roseann ging performed at 3.0 mm axial images status post IV contrast. Bone and soft tissue windows are revie wed. All CT scans at [facility] use at least one of these dose optimization techniques: autom ated exposure control; mA and/or kV adjustment per patient size (includes targeted exams where dose i s matched to clinical indication); or iterative reconstruction. CONTRAST: Omnipaque 350; 100 mL IV. DLP: 2031.78 mGy.cm COMPARISON: None available. No acute intracranial hemorrhage, edema or midline shift. Arias-white matter differentiation is preser jose. No edema. No prior infarct. Ventricles are normal size. No enhancing mass or vascular malformations identified. No intra displacement of the cerebellar tonsi ls. Dural venous sinuses are normally enhancing. Visualized [place] is unremarkable. Paranasal sinuses as visualized: Clear. Mastoid air cells: Clear. Calvarium and scalp: Intact. IMPRESSION: 1. No acute intracranial hemorrhage or edema. 2. No enhancing masses or vascular malformations. 3. Normal skull.
[2023-05-03] MEDS: iohexol 350 mg/mL 500 mL Btl (per mL) IV (12:59)
== END 2023-05-03 12:08 | disposition home or self-care (01) ==
PROVIDERS: PCP Physician Assistant; Visit Provider Internal Medicine Medical Oncology
DX: C34.92 Malignant neoplasm of unspecified part of left bronchus or lung (principal); R42 Dizziness and giddiness
CPT/HCPCS: 70470; Q9967

== ENCOUNTER 2023-05-16 11:07 | Oncology outpatient (recurring) (ONCR) | payer BC, MEDICAID, SELFPAY ==
[2023-05-02 08:32] VITALS: BMI 31.6
[2023-05-02 08:34] VITALS: BP 117/78; PULSE 85; RESP 18; TEMP 36.4; O2SAT 92
[2023-05-03 08:38] VITALS: BP 114/77; PULSE 75; RESP 18; TEMP 36.1; O2SAT 95; BMI 30.8
[2023-05-04 17:38] LABS: Alternaria Alternata (M6) Ige 3.47 kU/L; Alternaria Class 2; Bermuda Class 2; Bermuda Grass (G2) Ige 2.73 kU/L; Cat Dander (E1) Ige 1.35 kU/L; Cat Dander Class 2; D. Farinae Class 0; Dermatophagoides Class 0/1; Dermatophagoides Farinae (D2) <0.10 kU/L; Dermatophagoides Pteronyssinus 0.13 kU/L; Dog Dander (E5) Ige 3.47 kU/L; Dog Dander Class 2; Elm (T8) Ige 1.17 kU/L; Elm Class 2; English Plantain (W9) Ige 7.82 kU/L; English Plantain Class 3; House Dust (Greer) (H1) Ige 1.64 kU/L; House Dust (Hollister- Stier) 1.05 kU/L; House Dust Class 2; Immunoglobulin E 299 kU/L (<OR=114); Johnson Grass (G10) Ige 2.55 kU/L; Johnson Grass Cl 2; June Grass Class 3; June Grass(Kentucky Blue) (G8) 7.87 kU/L; Lamb'S Quarters (Goose Foot) 0.59 kU/L; Lamb'S Quarters Class 1; Maple (Box Elder) (T1) Ige 3.06 kU/L; Maple Class 2; Meadow Fescue (G4) Ige 6.95 kU/L; Meadow Fescue Class 3; Mucor Racemosus Class 0; Oak (T7) Ige 6.38 kU/L; Oak Class 3; Orchard Grass (Cocksfoot) (G3) 6.25 kU/L; Penicillium Class 0; Penicillium Notatum (M1) Ige <0.10 kU/L; Perennial Rye Grass (G5) Ige 7.21 kU/L; Perennial Rye Grass Class 3; Ragweeed Class 3; Rough Marsh Elder (W16) Ige 0.42 kU/L; Rough Marsh Elder Class 1; Sweet Vernal Class 3; Sweet Vernal Grass (G1) Ige 4.82 kU/L; Timothy Grass (G6) Ige 5.41 kU/L; Timothy Grass Class 3
[2023-05-05 19:29] LABS: Aspergillus Fumigatus, Igg Ab, 79.2 mg/L (<=102)
== END 2023-05-20 23:59 | disposition home or self-care (01) ==
PROVIDERS: Internal Medicine Pulmonary Disease; PCP Physician Assistant; Visit Provider Internal Medicine Medical Oncology
DX: Z53.9 Procedure and treatment not carried out, unspecified reason (principal)
CPT/HCPCS: 36415; 36591; 82785; 86003; J1642

== ENCOUNTER 2023-05-17 08:09 | Outpatient (CLI) | payer BC, MEDICAID, SELFPAY ==
--- NOTE | 2023-05-17 08:18 | XRR_ITS ---
PROCEDURE INFORMATION: Exam: XR Chest Exam date and time: 05/17/2023 8:38 AM Age: 52 years old Clinical indication: Shortness of breath; Prior surgery; Surgery date: 6+ months; Surgery type: Bronch; Patient HX: Cancer (type)--non small cell lung cancer; Additional info: Increased SOB TECHNIQUE: Imaging protocol: Radiologic exam of the chest. Views: 2 views. COMPARISON: CT chest w con* [id number] 05/02/2023 6:36 AM FINDINGS: Tubes, catheters and devices: Right-sided chest port catheter terminates in the SVC. Lungs: Persistent hazy opacity in the left middle lung field, stable to slightly improved compared to cook helper juice image from 05/02/2023. Pleural spaces: No large pleural effusion. No significant pneumothorax. Heart/Mediastinum: Cardiomediastinal silhouette is stable. Bones/joints: Osseous structures are unchanged. XR/XR chest 2V* [id number] IMPRESSION: Persistent hazy opacity in the left middle lung field, stable to slightly improved compared to [employer] image from 05/02/2023.
== END 2023-05-17 08:10 | disposition home or self-care (01) ==
PROVIDERS: PCP Physician Assistant; Visit Provider Internal Medicine Pulmonary Disease
DX: R06.02 Shortness of breath (principal); Z85.118 Personal history of other malignant neoplasm of bronchus and lung; Z98.890 Other specified postprocedural states
CPT/HCPCS: 71046

== ENCOUNTER 2023-05-23 05:40 | Day surgery (SDC) | payer BC, MEDICAID, SELFPAY ==
[2023-05-23] VITALS (11 sets, daily range): BP systolic 98–131; BP diastolic 50–86; PULSE 69–99; RESP 16–24; TEMP 36.2–37; O2SAT 94–98; BMI 31.3
--- NOTE | 2023-05-23 05:46 | CT_ITS ---
WS: [id number] CT CHEST TECHNIQUE: Noncontrast CT of the chest with coronal and sagittal reformatted images. CLINICAL INFORMATION: For bronchoscopy biopsies COMPARISON: CT chest 05/02/2023 DLP: 378.[address] scans at [facility] use at least one of these dose optimization techniques: automated e xposure control; mA and/or kV adjustment per patient size (includes targeted exams where dose is matc hed to clinical indication); or iterative reconstruction. FINDINGS: Stable dense consolidation LEFT hilum extending into the LEFT lower lobe with air bronchogr ams is similar in appearance to previous. Associated surrounding spiculation. This extends across the fissure into the LEFT upper lobe as previously described. Prominent LEFT AP window lymph node measur ing 11 to 12 mm appears slightly more prominent today. RIGHT lung is well aerated. RIGHT central venous catheter. Partially visualized hepatic cyst. Adrenal glands are normal. Small esophageal hiatal hernia. Normal caliber thoracic aorta. Prominent AP window lymph nodes. IMPRESSION: Images obtained for bronchoscopy navigational purposes
[2023-05-23] MEDS: sodium chloride 0.9% 1,000 ML 30 ML IV (06:16)
[2023-05-23 06:33] LABS: OR HCG Qualitative Urine Negative (Negative)
--- NOTE | 2023-05-23 06:42 | ANES.PREANE2 ---
Pre-Anesthetic Assessment Height/Weight: Height 1.6 m Weight 80.286 kg Temp Pulse Resp BP Pulse Ox O2 Del Method 98.6 F 86 16 106/86 95 Room Air 05/23/23 06:02 05/23/23 06:02 05/23/23 06:02 05/23/23 06:02 05/23/23 06:02 05/23/23 06:02 Operation Date: 05/23/23 07:00 Proposed Procedures p ION, EBUS, [id number], 97083, 40849, 24589, 70303, 02819, 36894, 74079, 41714, 11991, 88288, 96772, 06834, 85067,R91.8,R59.9(Not Applicable) - Erik Wei MD s Ebus(Not Applicable) - Erik Wei MD Familial anesthetic complications: None Was Beta Vane taken within 24 hours: N/A Was Clonidine taken within 24 hours: N/A Last intake: Intake Last Liquid Date 05/22/23 Last Liquid Time 22:00 Last Solid Date 05/22/23 Last Solid Time 20:30 Social No alcohol and No tobacco former smoker Exam alert, oriented x 3, clear to auscultation bilaterally and regular rate & rhythm Airway Mallampati: Class II Dentition: full Pulmonary Asthma (eosinophlic) non Small Cell Lung Cancer GI Gastroesophageal Reflux Disease Anesthetic Plan ASA status: 4 Anesthesia: General Risk of > 500 ml blood loss (7ml/kg in children): No Medications/Allergies Home Medications Medication Instructions Recorded Confirmed Last Taken Type cbd oil 1 applic PO DAILY PRN Anxiety 09/16/21 05/23/23 2 Months Ago History ~03/23/23 cyclobenzaprine 10 mg tablet 10 mg PO TID PRN muscle spasms 10/06/22 05/23/23 05/16/23 History famotidine 20 mg tablet 20 mg PO BID 10/06/22 05/23/23 05/22/23 History multivitamin 1 tab PO DAILY 10/06/22 05/23/23 05/22/23 History berberine-herbal comb no.18 capsule 2 cap PO DAILY 10/25/22 05/23/23 05/22/23 History biotin 10,000 mcg chewable tablet 10,000 mcg PO DAILY 10/25/22 05/23/23 05/22/23 History (Hair, Skin and Nails (biotin)) loratadine 10 mg tablet (Claritin) 10 mg PO DAILY 10/25/22 05/23/23 05/22/23 History calcium carbonate 1,000 mg-vitamin 2 tab PO DAILY 03/07/23 05/23/23 05/22/23 History D3 20 mcg (800 unit) tablet glucosamine HCl 500 mg tablet 500 mg PO DAILY 03/07/23 05/23/23 05/22/23 History ascorbic acid (vitamin C) 500 mg 500 mg PO DAILY 03/21/23 05/23/23 05/22/23 History tablet zinc sulfate 66 mg tablet (Zinc-15) 66 mg PO DAILY 03/21/23 05/23/23 05/22/23 History Quicertin with bromelain 1 cap PO DAILY 04/18/23 05/23/23 05/22/23 History pantoprazole 20 mg tablet,delayed 40 mg PO DAILY 04/18/23 05/23/23 05/22/23 History release budesonide-formoterol HFA 160 2 puff inhalation BID 05/19/23 05/23/23 05/23/23 History mcg-4.5 mcg/actuation aerosol inhaler (Symbicort) norethindrone acetate 5 mg tablet 5 mg PO DAILY 05/19/23 05/23/23 05/22/23 History Allergies Allergy/AdvReac Type Severity Reaction Status Date / Time animal dander Allergy Intermediate ALGY-Sneezi Verified 05/19/23 10:16 ng grass pollen Allergy Intermediate ALGY-Sneezi Verified 05/19/23 10:16 ng Penicillins Allergy Intermediate rash Verified 05/19/23 10:16 tree and shrub pollen Allergy Mild ALGY-Watery Verified 05/19/23 10:16 Eye fruit Allergy Intermediate ALGY-Swell Uncoded 05/16/23 11:22 Lip/Tongue/Throat dust mites Allergy Mild Unknown Uncoded 05/16/23 11:22 Current Medications Generic Name Dose Route Start Last Admin Trade Name Freq PRN Reason Stop Dose Admin Sodium Chloride 1,000 mls @ 30 mls/hr 05/23/23 06:00 05/23/23 06:16 Sodium Chloride 0.9% IV 05/24/23 05:59 30 mls/hr .Q24H GEORGE Administration PFSH Anesthesia Medical History Anxiety Asthma No pertinent past medical history neghx: htn,dm,thyroid,dvt/pe PCP: Myriam GONZALEZ Non-small cell cancer of left lung (~10/2022) Port-A-Cath in place Surgical History No pertinent past surgical history Family History Father Hyperlipidemia Other Diabetes Family history of premature coronary artery disease Denies family history of Colon cancer Ovarian cancer Heart disease Breast cancer Hypertension Uterine cancer Thyroid condition Stroke Social History Smoking and tobacco status: former smoker Quit status (tobacco): has quit using tobacco Year quit tobacco: 2019 Former quit date comment: Smoked for 20+ years Alcohol intake: current Alcohol intake frequency: holidays/special occasions only Substance/Drug Use: never Do you think of yourself as: Straight/Heterosexual Female Reproductive History Date of last menstrual period: 10/19/22 Data Anesthesia Cardiac Studies: Sestamibi Stress Test (Cardiology) 11/01/22
--- NOTE | 2023-05-23 07:21 | W.PM.OPSUD ---
Surgery/Procedure H&P Update DATE OF PROCEDURE: May 23, 2023 DATE H&P PERFORMED: 05/02/23 CHANGES TO PREVIOUS DOCUMENTATION: Patient completed 10-day course of levofloxacin-however her cough did not improve; discussed with oncology and decision was made to proceed with navigational bronchoscopy guided biopsies of left lower lung consolidation PREOP DIAGNOSIS: Suspected recurrent malignancy versus infection PRIMARY INDICATION FOR PROCEDURE: To rule out recurrent malignancy versus infection PLANNED PROCEDURE: Operation Date: 05/23/23 07:00 Proposed Procedures p ION, EBUS, 64466, 73831, 19084, 41468, 46976, 09855, 92670, 97441, 15234, 71953, 85958, 98054, 17025, 94061,R91.8,R59.9(Not Applicable) - Erik Wei MD s Ebus(Not Applicable) - Erik Wei MD
--- NOTE | 2023-05-23 07:29 | SC_ITS ---
WS: [id number] INTRAOPERATIVE TECHNIQUE: 2 Spot fluoroscopic images for intraoperative purposes. FLUOROSCOPY TIME: 433.3 seconds CLINICAL INFORMATION: ion/ebus COMPARISON: None. FINDINGS: Intraoperative images used for bronchoscopy navigational purposes. IMPRESSION: Images obtained for intraoperative purposes.
[2023-05-23] MEDS: lidocaine 1% INJ 10 mL (per mL) XX (08:00)
[2023-05-23] MEDS: EPINEPHrine 1 mg/mL INJ XX (08:01)
--- NOTE | 2023-05-23 08:54 | PM.OP ---
Operative Report Date of procedure: May 23, 2023 Pre-op diagnosis: Suspected recurrent malignancy versus versus pneumonitis versus infection Post-op diagnosis: Preliminary negative for malignancy Procedure done: 09757 Dx Bronchoscope w/Washings or airway inspection 84948 Bx Bronchoscope w/Brushings or protected brushings 73087 Dx Bronchoscope w/BAL 59736 Bronch with computer image guided Navigational Bronchoscopy 43128 Bronchoscopy w/Transbronchial needle aspiration biopsy(s), tracheal, main stem, and/or lobar bronchus 93618 Bronchoscopy w/ therapeutic aspiration of the tracheobronchial tree (clearance of airway secretions, removal of mucus plugs) 42071 EBUS Diag or Interven Peripheral lesion (radial EBUS) Surgeon: Erik Wei MD Brief History: Ms. 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 Dumont for left lung nodule. Ex-smoker [id number] history quit in 1997 On October 11, 2022 she underwent EBUS and needle aspiration from station 11 L lymph node which confirmed metastatic non-small cell carcinoma with immunoprofile most consistent with squamous cell lineage. Patient was referred to cardiothoracic surgery at [facility] in [place], where she was evaluated by Dr. Osborne, cardiothoracic surgeon on November 17, 2022 and his impression was that patient may have visceropleural involvement that we will make a T4, N1, so CT scan of chest was done on that day which showed left lower lobe nodule with satellite nodularity in the adjacent vessel as well as in the left oblique fissure, left hilar lymphadenopathy.? Left hilar lymph node is slightly more prominent than the prior exam otherwise no obvious change.? As per patient because of left? oblique fissure involvement, she was not considered as a candidate for surgery so combined chemoradiation therapy was recommended.? She was also advised to obtain an MRI scan of the brain to complete staging work-up, which is scheduled for December 12, 2022? showed no evidence of metastatic disease. Patient started on combined chemoradiation on December 26, 2022 weekly carboplatin/Taxol, on January 25, 2023, after 4 weekly doses of carboplatin/Taxol concurrent with radiation therapy, her chemotherapy regimen was changed to weekly cisplatin/Taxol from weekly carboplatin/Taxol due to nationwide shortage of carboplatin.? Patient completed combined chemoradiation,-follow-up by CT scan of chest to assess response for disease status on February 15, 2023 which showed stable left lower lobe pulmonary nodule measuring 1.2 cm maximally with a stable adjacent small satellite nodules, no new site of disease identified. Patient was recommended maintenance therapy with biweekly durvalumab for [address] chest 05/02/2023?Large dense consolidation centered at the LEFT hilum and extending predominantly into the LEFT lower lobe but also crosses the fissure into the LEFT upper lobe. Consolidation is contiguous with the nodule in the LEFT lower lobe. Suspect this is pneumonitis related to immunotherapy versus pneumonia.She underwent a CT head with and without contrast on 05/03/2023 with no evidence of metastasis.She has received antibiotics with Levaquin for suspected pneumonia. But patient continues to have cough as well as increased shortness of breath. Discussed with oncology and agreed to repeat biopsies of left lung consolidation to rule out recurrent malignancy versus pneumonitis versus to identify etiology of pneumonia Today she is scheduled for navigational bronchoscopy guided biopsy of left lower lobe mass as well as endobronchial ultrasound surveillance of hilar/mediastinal lymph nodes Procedure: 90038 Dx Bronchoscope w/Washings or airway inspection 44148 Bx Bronchoscope w/Brushings or protected brushings 89174 Dx Bronchoscope w/BAL 74833 Bronch with computer image guided Navigational Bronchoscopy 66647 Bronchoscopy w/Transbronchial needle aspiration biopsy(s), tracheal, main stem, and/or lobar bronchus 49024 Bronchoscopy w/ therapeutic aspiration of the tracheobronchial tree (clearance of airway secretions, removal of mucus plugs) 77690 EBUS Diag or Interven Peripheral lesion (radial EBUS) Indication: Description of the procedure: The procedure was explained to the patient and the consent was obtained. The patient was brought to the OR. Anesthesia: The patient underwent endotracheal intubation for general anesthesia. Local anesthesia: The distal trachea-Niru, right and left mainstem bronchi were anesthetized with 1% lidocaine, 3 mL. Following induction of general anesthesia, the flexible bronchoscope was advanced through the ET tube. The lower trachea mucosa appeared normal, no endotracheal lesion was seen. The niru was sharp. The niru, the right and left mainstem bronchi are anesthetized with 1% lidocaine. In a systematic manner bilateral bronchial tree was then examined. The bronchoscope was then introduced into the right mainstem bronchus. The right upper lobe, right middle lobe and right lower lobe bronchi were examined up to the third subsegmental level and no abnormalities were identified.Mucosa appeared normal with no endobronchial lesion, active bleeding or mucous plug.There were significant clear as well as some mucus secretions which were suctioned right away.(36145). The bronchoscope was advanced into the left mainstem bronchus. The mucosa appeared normal with no endobronchial lesions. The left upper lobe, lingula and left lower lobe bronchi were examined up to the third subsegmental level and no abnormalities were identified. Mucosa appeared normal with no endobronchial lesion, active bleeding or mucous plug. There were some mucus secretions in left lower lobe-which were suctioned right away.(36137) After initial inspection as well as airway clearance with flexible bronchoscope(14225), ION robotic assisted navigational bronchoscope (18545) was introduced-and left lower lobe lesion was accessed. After confirming the location with radial EBUS (34864), a concentric lesion was seen with no visible blood vessels in the field, under the fluoroscopy guidance -first pass was made with needle-which resulted in grade 2 bleeding that was controlled with cold saline and diluted epinephrine. I have navigated through preplanned adjacent airways-however there were pulsating blood vessels in all radial EBUS images. They were obviously not safe sides to biopsy. Finally I have selected another area where there was good concentric signal with no significant blood vessels in the vicinity and attempted a second pass with needle as well as 1 pass with Cytobrush. This again resulted in grade 2 bleeding which was again controlled with instillation of cold saline as well as diluted epinephrine. BAL was also taken from left lower lobe posterior segment. After making sure there is no active bleeding navigational bronchoscope was retracted and introduced Endobronchial ultrasound EBUS (17141). With the help of EBUS, identified masslike lesion in left hilar area corresponding to station 11 L, 12 L-however it is highly vascular and so could not biopsy.. There is no suspected lymph nodes in 4L, station 7, station 12 R, station 11 R, station 10 R, station 4R After taking the biopsies EBUS retracted-diagnostic bronchoscope was introduced to check for any evidence of active bleeding. The bleeding from left lower lobe from needle and brush biopsies has significantly started with slow oozing-which stopped completely after instillation of cold saline and diluted epinephrine. After making sure there is no active bleeding bronchoscope was retracted and procedure terminated. Samples: A. Left lower lobe lesion: 1. Total of 2 passes were made using needle aspiration(89061); 1 slides sent for rapid onsite evaluation-reported seeing blood with no evidence of malignancy; rest of the material was placed in formalin for histopathology. 2. Targeting the same area 1 pass were made using Cytobrush (16990); all the material was placed in formalin for histopathology 3. Bronchoscope was wedged at the entrance of the posterior segment of left lower lobe, 30 mL of saline was instilled and returned 20 mL of bronchoalveolar lavage (75898). The fluid was mixed with blood and specks of tissue. Samples for cell count, cytology, microbiology cultures, fungal cultures, PCP Complications: None.The patient was extubated and brought to the PACU in stable condition. Postprocedure chest x-ray: There is no evidence of pneumothorax Disposition: Patient can be discharged home in stable condition. Pt, and her son are aware that I am going to call them to update final biopsy results once available.
[2023-05-23 09:00] LABS: Cyto Order Verification Order Verified
--- NOTE | 2023-05-23 09:17 | XR_ITS ---
WS: [id number] CHEST XRAY TECHNIQUE: Portable chest. CLINICAL INFORMATION: ion/ebus COMPARISON: 05/17/2023 and 05/23/2023 FINDINGS: Status post LEFT bronchoscopy. No evidence of pneumothorax. Stable RIGHT central venous cat heter. RIGHT lung is well aerated. LEFT hilar consolidation with volume loss LEFT lung unchanged in a ppearance. IMPRESSION: No evidence of pneumothorax post bronchoscopy. Notified Erik Wei MD at 05/23/2023 9:33 AM.
[2023-05-23 09:36] LABS: Apprearance, Bronch Wash Bloody (CLEAR); Color, Bronc Wash Red
[2023-05-23 09:37] LABS: Bronch Source LEFT LOWER LOBE BAL
--- NOTE | 2023-05-23 10:10 | ANE.PACU2 ---
Inpatient post-anesthesia follow up: Airway intact: Yes Vital signs: Temperature 98 F Pulse Rate 69 Respiratory Rate 16 Blood Pressure 124/77 Pulse Oximetry 94 Oxygen Delivery Me thod Room Air Oxygen Flow Rate 3 Fraction of Inspir ed Oxygen Hydration adequate: Yes Nausea and vomiting: No Pain level: 1 Mental status: Baseline
[2023-05-23 10:20] LABS: Total Cells Counted Bronch 200
[2023-05-23 10:31] LABS: Eosinophils % Bronch 0.03 % (0.13-0.25)
[2023-05-27 16:29] LABS: Pneumocystis Jirovecii DNA PCR NOT DETECTED Log cps/mL; Pneumocystis Jirovecii DNA PCR NOT DETECTED copies/mL; Pneumocystis Jirovecii Source BAL
[2023-05-28 18:45] LABS: Aspergillus AG,EIA DETECTED; Aspergillus AG,EIA, Index 0.59
[2023-05-30 06:29] LABS: Histoplasma Antigen (Quant) NONE DETECTED; Histoplasma Antigen Interpreta NEGATIVE; Histoplasma Antigen Specimen LAVAGE,BRONCHIAL
== END 2023-05-23 10:11 | disposition home or self-care (01) ==
PROVIDERS: Anesthesiology; PCP Physician Assistant; Visit Provider Internal Medicine Pulmonary Disease
PROC: 0BJ08ZZ Inspection of Tracheobronchial Tree, Via Natural or Artificial Opening Endoscopic (ICD-10-PCS; CPT 31622; principal; 2023-05-23 07:00)
PROC: BB4BZZZ Ultrasonography of Pleura (ICD-10-PCS; 2023-05-23 07:00)
DX: R91.8 Other nonspecific abnormal finding of lung field (principal); Z85.118 Personal history of other malignant neoplasm of bronchus and lung; Z87.891 Personal history of nicotine dependence
CPT/HCPCS: 31623; 31624; 31627; 31629; 31645; 31654; 71045; 71250; 76000; 80503; 81025; 84703; 87015; 87070; 87077; 87102; 87116; 87186; 87205; 87206; 87305; 87385; 87799; 87801; 88112; 88305; 88312; 89050; J0171; J2250; J2704; J3010; J7030

== ENCOUNTER 2023-06-01 11:03 | Outpatient (CLI) | payer BC, MEDICAID, SELFPAY ==
[2023-06-01 12:32] LABS: Alanine Aminotransferase 16 U/L (0-33); Albumin Level 4.2 g/dL (3.5-5.2); Alkaline Phosphatase 63 U/L (35-105); Aspartate Amino Transferase 14 U/L (0-32); Globulin 3.3 g/dL (1.3-4.6); Total Bilirubin 0.3 mg/dL (0.15-1.2); Total Protein 7.5 g/dL (6.6-8.7)
== END 2023-06-01 11:04 | disposition home or self-care (01) ==
PROVIDERS: PCP Physician Assistant; Visit Provider Internal Medicine Pulmonary Disease
DX: C34.92 Malignant neoplasm of unspecified part of left bronchus or lung (principal)
CPT/HCPCS: 36415; 80076

== ENCOUNTER → 2023-06-05 08:35 | Outpatient (BNVA) | payer BC, MEDICAID, SELFPAY | PROVIDERS: PCP Physician Assistant; Visit Provider Internal Medicine Pulmonary Disease | DX: B44.9 Aspergillosis, unspecified (principal) | CPT/HCPCS: 93005 ==

== ENCOUNTER 2023-06-13 14:02 | Outpatient (CLI) | payer BC, MEDICAID, SELFPAY ==
--- NOTE | 2023-06-13 10:30 | PETR_ITS ---
PROCEDURE INFORMATION: Exam: PET/CT Skull Base to Mid-thigh Exam date and time: 06/13/2023 11:18 AM Age: 52 years old Clinical indication: Condition or disease; Primary cancer: Lung cancer left lung, leukemia; Follow-up oncological assessment; Prior surgery; Surgery date: 6+ months; Surgery type: Csection. RT breast biopsy. Contrast--n. Tech--db. Scanned by--db. Verified patient//orders--y. --n. Lmp less than 4 wks ago--. Had a hysterectomy--. Use a form of contraception--. Not sexually active--. Have not had sexual activity since last menstrual period. Date of. Lmp--; Additional info: Check for mets. History radiation therapy. History of bronchoscopy 05/23/2023 LABS AND CLINICAL REPORTS: Glucose: 101 mg/dl Treatment strategy for malignancy (PET staging): Restaging (PS) TECHNIQUE: Imaging protocol: Following at least four-hour fasting and following the injection of radiopharmaceutical, low dose CT images were obtained. Then, PET images were obtained. Attenuation corrected images were constructed using the CT scan. Fused images of PET and CT were reviewed. The standardized uptake values (SUV) reported below are maximum values within a region of interest, expressed in gm/ml. Exam includes orbital meatal line to mid-thigh. Radiopharmaceutical: 13.56 mCi F-18 FDG (Fluorodeoxyglucose), IV. Time of imaging post radiopharmaceutical administration: 1 hour Injection site: Right antecubital COMPARISON: CT chest 05/23/2023, CT chest 05/02/2023, CT chest 02/15/2023, CT PET [facility] [id number] 09/06/2022 2:10 PM FINDINGS: Tubes, catheters and devices: A right subclavian central venous port catheter terminates in the distal SVC. Brain: Visualized brain has normal physiologic uptake. Pharynx: No abnormal uptake. Larynx: No abnormal uptake. Lungs, pleura and trachea: Moderate regions of patchy left perihilar consolidation involving the left upper lobe and left lower lobe are noted which are new since the prior PET-CT and similar compared with 05/23/2023 and 05/02/2023. Uptake within the left upper lobe component of this process demonstrates an SUV max 3.8 and uptake within the left lower lobe component demonstrates an SUV max 4.2. A small focus of patchy density adjacent to the pleural surface in the left upper lobe on series 3, image 71 is similar compared with 05/23/2023, SUV max 3.4. A moderate sized bulla in the superior segment of the left lower lobe is present. Heart: No abnormal uptake. Mediastinal space: No abnormal uptake. Liver: In the anterior left lobe of the liver a non radiotracer avid 1.9 cm in diameter fluid density structure compatible with a benign cyst is present. An additional non radiotracer avid cyst in the lateral right lobe of the liver is noted measuring 1.8 cm in diameter on image 126. Gallbladder and bile ducts: No abnormal uptake. Pancreas: No abnormal uptake. Spleen: No abnormal uptake. Adrenal glands: No abnormal uptake. Kidneys and ureters: There is probable physiologic uptake versus uptake within a region of urinary contamination in the region of the vulva. Stomach and bowel: No abnormal uptake. There are scattered colonic diverticula. Vasculature: No abnormal uptake. There are diffuse atherosclerotic changes. Lymph nodes: Small, borderline pathologically enlarged mediastinal lymph nodes are identified, for example in the pericardial fat along the left lateral aspect of the aortopulmonary window measuring 1 cm on series 3, image 69 without elevated uptake. Bones/joints: No abnormal uptake in the visualized axial and appendicular skeleton. There is mild diffuse vertebral body spondylosis. Relative straightening of the thoracic spine kyphosis is noted. Soft tissues: No abnormal uptake in the visualized head, neck, chest, abdomen, pelvis, and extremities. METRICS: Mediastinal blood pool: SUV max 2.0 Liver uptake: SUV max 3.1, SUV mean 2.6 [id number] IMPRESSION: 1. Similar regions of left-sided patchy consolidation primarily involving the left upper and lower lobes in a perihilar distribution compared with CT is dating back to 05/02/2023, new compared with 02/15/2023 in the prior PET-CT. Elevated uptake in these regions is noted (SUV max 4.2) which may be related to post treatment inflammatory changes and/or superimposed infectious infiltrates. A malignant etiology is a less likely consideration. 2. Low-density lesions in the liver are compatible with benign cysts. 3. Additional nonurgent findings as detailed above.
== END 2023-06-13 14:03 | disposition home or self-care (01) ==
LOC: RAD 14:02
PROVIDERS: PCP Physician Assistant; Visit Provider Internal Medicine Pulmonary Disease
DX: C34.92 Malignant neoplasm of unspecified part of left bronchus or lung (principal); Z92.3 Personal history of irradiation; Z90.710 Acquired absence of both cervix and uterus
CPT/HCPCS: 78815; A9552

== ENCOUNTER 2023-06-21 11:14 | Oncology outpatient (recurring) (ONCR) | payer BC, MEDICAID, SELFPAY | END 2023-07-20 23:59 | disposition home or self-care (01) | PROVIDERS: PCP Physician Assistant; Visit Provider Internal Medicine Medical Oncology | DX: R06.02 Shortness of breath (principal); Z51.11 Encounter for antineoplastic chemotherapy; C34.92 Malignant neoplasm of unspecified part of left bronchus or lung; Z79.899 Other long term (current) drug therapy | CPT/HCPCS: J1642 ==

== ENCOUNTER → 2023-07-20 12:43 | Outpatient (BNVA) | payer BC, MEDICAID, SELFPAY | PROVIDERS: PCP Physician Assistant; Visit Provider Student in an Organized Health Care Education/Training Program | DX: B49 Unspecified mycosis (principal); J18.9 Pneumonia, unspecified organism | CPT/HCPCS: 80053; 85025; 86480 ==

== ENCOUNTER 2023-07-28 15:20 | Outpatient (CLI) | payer BC, MEDICAID, SELFPAY ==
--- NOTE | 2023-07-28 15:30 | CT_ITS ---
WS: [id number] CT chest wo con [id number] HISTORY: follow up consolidation, presumptive fungal pneumonia, history of non-small cell lung cancer . TECHNIQUE: Axial imaging performed through the thorax. Coronal and sagittal reformats are submitted. All CT scans at [facility] use at least one of these dose optimization techniques: automated exposure control; mA and/or kV adjustment per patient size (includes targeted exams where dose is mat ched to clinical indication); or iterative reconstruction. CONTRAST: None DLP: 411.75 mGy.cm COMPARISON: 05/23/2023 Lungs and central airway: Dense area of consolidation with air bronchograms centered over the LEFT hi lum is reidentified. Spiculated airspace disease extends into the LEFT upper and LEFT lower lobes. Th ere is bronchial wall thickening and air bronchograms. Developing cavitation in the consolidation in the LEFT lower lobe. Cavitation measures 2.8 x 2.4 cm. This size overall has slightly decreased since 05/02/2023. Pleura: Normal. No pleural effusion. Heart and pericardium: Normal size heart with no pericardial effusion. Mediastinum and artur: No enlarged lymph nodes. Vessels: Minimal atherosclerosis aorta. Pulmonary artery size is slightly enlarged. RIGHT subclavian Mediport. Chest wall and lower neck: No soft tissue masses. Upper abdomen: There are 2 low-attenuation masses within the liver. These have been present on prior studies and consistent with cysts. No adrenal mass. Osseous structures: Mild straightening of the normal lumbar lordosis. IMPRESSION: 1. Continued dense consolidation with air bronchograms centered at the LEFT hilum but extending into the LEFT upper and lower lobes across the fissure. Developing cavitation is now present in the consol idation in the LEFT lower lobe. These may be changes of fungal pneumonia. Other etiologies of consoli dation and cavitation include neoplasm, pulmonary infarct and TB 2. No mediastinal or hilar adenopathy. 3. Hepatic cysts.
== END 2023-07-28 15:21 | disposition home or self-care (01) ==
PROVIDERS: PCP Physician Assistant; Visit Provider Student in an Organized Health Care Education/Training Program
DX: J44.9 Chronic obstructive pulmonary disease, unspecified (principal); J16.8 Pneumonia due to other specified infectious organisms; B49 Unspecified mycosis; Z85.118 Personal history of other malignant neoplasm of bronchus and lung; Q44.6 Cystic disease of liver
CPT/HCPCS: 71250

== ENCOUNTER 2023-08-23 13:55 | Outpatient (CLI) | payer BC, MEDICAID, SELFPAY ==
--- NOTE | 2023-08-23 14:30 | CTR_ITS ---
PROCEDURE INFORMATION: Exam: CT Chest Without Contrast; Diagnostic Exam date and time: 08/23/2023 2:06 PM Age: 52 years old Clinical indication: Condition or disease; Lung condition and disease; Cancer of the lung; Bilateral; Unspecified; Primary cancer: Cavitary lung lesion; Prior surgery; Surgery date: 6+ months; Surgery type: Port; Additional info: Follow up cavitary lung lesion, patient with lung cancer currently on treatment for TECHNIQUE: Imaging protocol: Diagnostic computed tomography of the chest without contrast. Radiation optimization: All CT scans at this facility use at least one of these dose optimization techniques: automated exposure control; mA and/or kV adjustment per patient size (includes targeted exams where dose is matched to clinical indication); or iterative reconstruction. COMPARISON: CT chest [facility] [id number] 07/28/2023 3:31 PM RADIATION DOSE METRICS: Total DLP (mGy-cm): 410.48 FINDINGS: Lungs: Chronic left perihilar soft tissue thickening in a distribution suggesting radiation pneumonitis/fibrosis. This includes a stable 2.3 cm cavitary lesion. The appearance is unchanged since the prior study. No evidence of recurrent or residual neoplastic disease. Pleural spaces: Unremarkable. No pneumothorax. No pleural effusion. Heart: Unremarkable. No cardiomegaly. No pericardial effusion. Coronary arteries: No coronary artery calcifications. Lymph nodes: Visible central lymph nodes are not pathologically enlarged. Vasculature: Unremarkable. No aortic aneurysm. Liver: Stable hepatic cysts. Bones/joints: Unremarkable. No acute fracture. Soft tissues: Unremarkable. CT/CT chest [facility] [id number] IMPRESSION: No significant interval change.
[2023-08-23 14:38] LABS: Basophils % 0.2 %; Eosinophils # 0.1 10^3/uL (0.0-0.8); Eosinophils % 0.9 %; Hematocrit 41.5 % (36-47); Lymphocytes # 0.7 10^3/uL (0.8-4.8); Lymphocytes % 11.2 %; Mean Corpuscular HGB Conc 32.8 g/dL (30-55); Mean Corpuscular Hemoglobin 30.3 pg (27-33); Mean Corpuscular Volume 92.4 fl (85-98); Mean Platelet Volume 8.6 fL (7.4-10.4); Monocytes # 0.3 10^3/uL (0.2-0.9); Monocytes % 4.7 %; Neutrophils # 5.49 10^3/uL (1.8-7.7); Neutrophils % 82.8 %; Nucleated Red Blood Cells % 0 %; Platelet Count 305 10^3/cmm (157-399); Red Blood Count 4.49 10^6/uL (3.85-5.65); Red Cell Distribution Width 14.6 % (12.1-15.1); White Blood Count 6.62 10^3/uL (3.29-11.43)
[2023-08-23 14:57] LABS: Alanine Aminotransferase 21 U/L (0-33); Albumin Level 4.2 g/dL (3.5-5.2); Alkaline Phosphatase 64 U/L (35-105); Anion Gap 13.7 (5-19); Aspartate Amino Transferase 16 U/L (0-32); Blood Urea Nitrogen 9 mg/dL (6-20); Carbon Dioxide 26 mmol/L (22-29); Chloride 104 mmol/L (98-107); Globulin 3.6 g/dL (1.3-4.6); Glucose 169 mg/dL (65-115); Osmolality Calculated 293 mOsm/kg (285-295); Potassium 3.7 mmol/L (3.5-5.1); Sodium 140 mmol/L (136-145); Total Bilirubin 0.2 mg/dL (0.15-1.2); Total Protein 7.8 g/dL (6.6-8.7)
[2023-08-28 20:43] LABS: Coccidioides AB CF Serum <1:2; Histoplasma capsulatum H Ab NEGATIVE; Histoplasma capsulatum M Ab NEGATIVE
[2023-08-30 13:30] LABS: Blastomyces AB Immunodiffusion Negative (Negative); Blastomyces Dermatitidis AB <1:8 titer (<1:8)
[2023-08-31] LABS: Histoplasma Galactomannan Ag <0.2 ng/mL
== END 2023-08-23 13:56 | disposition home or self-care (01) ==
LOC: RAD 13:56
PROVIDERS: PCP Physician Assistant; Visit Provider Student in an Organized Health Care Education/Training Program
DX: J16.8 Pneumonia due to other specified infectious organisms (principal); B44.9 Aspergillosis, unspecified; B49 Unspecified mycosis; R91.8 Other nonspecific abnormal finding of lung field; C34.90 Malignant neoplasm of unspecified part of unspecified bronchus or lung
CPT/HCPCS: 36415; 71250; 80053; 85025; 86403; 86612; 86635; 86698; 87385

== ENCOUNTER 2023-10-03 08:29 | Outpatient (CLI) | payer BC, MEDICAID, SELFPAY ==
--- NOTE | 2023-10-03 | PETR_ITS ---
PROCEDURE INFORMATION: Exam: PET/CT Skull Base to Mid-thigh Exam date and time: 10/03/2023 9:24 AM Age: 52 years old Clinical indication: Condition or disease; Primary cancer: Lung; Condition/disease: Pneumonia due to fungus; Prior surgery; Surgery date: 6+ months; Surgery type: Port LABS AND CLINICAL REPORTS: Glucose: 74 mg/dl Treatment strategy for malignancy (PET staging): Initial Staging (PI) TECHNIQUE: Imaging protocol: Following at least four-hour fasting and following the injection of radiopharmaceutical, low dose CT images were obtained. Then, PET images were obtained. Attenuation corrected images were constructed using the CT scan. Fused images of PET and CT were reviewed. The standardized uptake values (SUV) reported below are maximum values within a region of interest, expressed in gm/ml. Exam includes orbital meatal line to mid-thigh. Radiopharmaceutical: 12.62 mCi F-18 FDG (Fluorodeoxyglucose), IV. Time of imaging post radiopharmaceutical administration: 1 hour Injection site: Right antecubital [facility] [id number] 06/13/2023 11:18 AM FINDINGS: Brain: Visualized brain has normal physiologic uptake. Pharynx: No abnormal uptake. Larynx: No abnormal uptake. Lungs, pleura and trachea: Redemonstrated linear area of fibrotic appearing tissue in the left perihilar region with associated bronchiectasis appearing to reflect radiation pneumonitis/fibrosis. The cavitary in this region has resolved. There is decreasing FDG avidity of the soft tissue in this region with an SUV max of 2.7 (previously measuring 4.2). Heart: Normal physiologic uptake. Mediastinal space: No abnormal uptake. Liver: No abnormal uptake. Gallbladder and bile ducts: No abnormal uptake. Pancreas: No abnormal uptake. Spleen: No abnormal uptake. Adrenal glands: No abnormal uptake. Kidneys and ureters: Normal physiologic uptake. Stomach and bowel: No abnormal uptake. Vasculature: No abnormal uptake. Lymph nodes: No abnormal uptake. No lymphadenopathy in the head, neck, chest, abdomen, pelvis, and extremities. Bones/joints: No abnormal uptake in the visualized axial and appendicular skeleton. Soft tissues: No abnormal uptake in the visualized head, neck, chest, abdomen, pelvis, and extremities. [facility] [id number] IMPRESSION: Redemonstrated findings suggestive of radiation pneumonitis/fibrosis in the left perihilar region with decreasing FDG avidity. Cavitary lesion in this region has resolved. No signs of new or progressing disease.
== END 2023-10-03 08:30 | disposition home or self-care (01) ==
LOC: RAD 08:30
PROVIDERS: PCP Physician Assistant; Visit Provider Student in an Organized Health Care Education/Training Program
DX: J16.8 Pneumonia due to other specified infectious organisms (principal); C34.92 Malignant neoplasm of unspecified part of left bronchus or lung; Z92.3 Personal history of irradiation
CPT/HCPCS: 78815; A9552

== ENCOUNTER 2023-10-18 08:17 | Oncology outpatient (recurring) (ONCR) | payer BC, MEDICAID, SELFPAY ==
[2023-09-21 14:30] LABS: Basophils % 0.5 %; Eosinophils # 0.2 10^3/uL (0.0-0.8); Eosinophils % 2.8 %; Hematocrit 39.3 % (36-47); Mean Corpuscular HGB Conc 33.6 g/dL (30-55); Mean Corpuscular Hemoglobin 31.3 pg (27-33); Mean Corpuscular Volume 93.1 fl (85-98); Mean Platelet Volume 8.5 fL (7.4-10.4); Monocytes # 0.6 10^3/uL (0.2-0.9); Neutrophils % 77.3 %; Nucleated Red Blood Cells % 0 %; Platelet Count 329 10^3/cmm (157-399); Red Blood Count 4.22 10^6/uL (3.85-5.65); Red Cell Distribution Width 14.3 % (12.1-15.1); White Blood Count 7.89 10^3/uL (3.29-11.43)
[2023-09-21 14:53] LABS: Alanine Aminotransferase 20 U/L (0-33); Albumin Level 4.4 g/dL (3.5-5.2); Alkaline Phosphatase 62 U/L (35-105); Anion Gap 16.1 (5-19); Aspartate Amino Transferase 17 U/L (0-32); Blood Urea Nitrogen 12 mg/dL (6-20); Calcium 9.5 mg/dL (8.5-10.5); Carbon Dioxide 23 mmol/L (22-29); Chloride 103 mmol/L (98-107); Creatinine Clr Calc Pharmacy 110.6714; Globulin 3.1 g/dL (1.3-4.6); Glucose 88 mg/dL (65-115); Osmolality Calculated 285 mOsm/kg (285-295); Potassium 4.1 mmol/L (3.5-5.1); Sodium 138 mmol/L (136-145); Total Bilirubin 0.2 mg/dL (0.15-1.2); Total Protein 7.5 g/dL (6.6-8.7)
== END 2023-10-19 23:59 | disposition home or self-care (01) ==
PROVIDERS: PCP Physician Assistant; Visit Provider Nurse Practitioner Family
DX: Z53.9 Procedure and treatment not carried out, unspecified reason (principal)
CPT/HCPCS: 36591; 80053; 85025

== ENCOUNTER 2023-11-08 09:49 | Oncology outpatient (recurring) (ONCR) | payer BC, MEDICAID, SELFPAY ==
[2023-11-08 10:21] LABS: Basophils % 0.7 %; Eosinophils # 0.2 10^3/uL (0.0-0.8); Eosinophils % 3.4 %; Hematocrit 41.8 % (36-47); Lymphocytes # 0.9 10^3/uL (0.8-4.8); Lymphocytes % 14.5 %; Mean Corpuscular HGB Conc 32.8 g/dL (30-55); Mean Corpuscular Hemoglobin 31.1 pg (27-33); Mean Corpuscular Volume 94.8 fl (85-98); Mean Platelet Volume 8.6 fL (7.4-10.4); Monocytes # 0.5 10^3/uL (0.2-0.9); Monocytes % 7.8 %; Neutrophils # 4.32 10^3/uL (1.8-7.7); Neutrophils % 73.4 %; Nucleated Red Blood Cells % 0 %; Platelet Count 292 10^3/cmm (157-399); Red Blood Count 4.41 10^6/uL (3.85-5.65); Red Cell Distribution Width 13.1 % (12.1-15.1); White Blood Count 5.88 10^3/uL (3.29-11.43)
[2023-11-08 10:49] LABS: Alanine Aminotransferase 20 U/L (0-33); Albumin Level 4.2 g/dL (3.5-5.2); Alkaline Phosphatase 61 U/L (35-105); Anion Gap 15.1 (5-19); Aspartate Amino Transferase 18 U/L (0-32); Blood Urea Nitrogen 15 mg/dL (6-20); Calcium 9.2 mg/dL (8.5-10.5); Carbon Dioxide 25 mmol/L (22-29); Chloride 107 mmol/L (98-107); Globulin 2.8 g/dL (1.3-4.6); Glomerular Filtration Rate 87.5 mL/min (90-130); Glucose 90 mg/dL (65-115); Osmolality Calculated 294 mOsm/kg (285-295); Potassium 5.1 mmol/L (3.5-5.1); Sodium 142 mmol/L (136-145); Thyroid Stimulating Hormone 2.41 uIU/mL (0.27-4.20); Total Bilirubin 0.3 mg/dL (0.15-1.2)
== END 2023-11-19 23:59 | disposition home or self-care (01) ==
PROVIDERS: Internal Medicine Medical Oncology; PCP Physician Assistant; Visit Provider Nurse Practitioner Family
DX: C34.32 Malignant neoplasm of lower lobe, left bronchus or lung (principal)
CPT/HCPCS: 36591; 80053; 84443; 85025

== ENCOUNTER 2023-12-06 14:33 | Oncology outpatient (recurring) (ONCR) | payer BC, MEDICAID, SELFPAY | END 2023-12-19 23:59 | disposition home or self-care (01) | LOC: ONCMED 14:34 | PROVIDERS: PCP Physician Assistant; Visit Provider Nurse Practitioner Family | DX: Z45.2 Encounter for adjustment and management of vascular access device ==

== ENCOUNTER 2023-12-25 11:48 | Outpatient (CLI) | payer BC, MEDICAID, SELFPAY ==
--- NOTE | 2023-12-25 12:00 | CT_ITS ---
WS: [id number] CT chest w con* [id number] HISTORY: lung cancer TECHNIQUE: Axial imaging performed through the thorax. Coronal and sagittal reformats are submitted. All CT scans at [facility] use at least one of these dose optimization techniques: automated exposure control; mA and/or kV adjustment per patient size (includes targeted exams where dose is mat ched to clinical indication); or iterative reconstruction. CONTRAST: Omnipaque 350; 100 mL IV. DLP: 427.74 mGy.cm COMPARISON: 08/23/2023, PET CT 10/03/2023 Lungs and central airway: LEFT hilar areas of consolidation persist but are improving. Improving area s of LEFT hilar consolidation and atelectasis. Previously described LEFT lower lobe cavitary lesion h as resolved. These changes thought to be related to radiation pneumonitis and post treatment. PET/CT was negative. Recommend continued close follow-up. No new mass or pulmonary nodule. Pleura: Normal. No pleural effusion. Heart and pericardium: Normal size heart with no pericardial effusion. Mediastinum and artur: RIGHT hilar increased soft tissue but improving consistent with postradiation c hanges and atelectasis. No progression. No new lymph nodes. Vessels: Mild atherosclerosis aorta. No aneurysm. Normal size pulmonary artery. Chest wall and lower neck: No soft tissue masses. Upper abdomen: Small hiatal hernia. Hepatic steatosis. Several stable hepatic cysts are identified. L argest in the RIGHT lobe measures 1.9 x 1.8 cm. No portal vein abnormality. Normal adrenal glands. Osseous structures: Straightening and scoliosis thoracic spine. CT/CT chest w con* [id number] IMPRESSION: 1. Continued slow improvement in the posttreatment pneumonitis centered at the LEFT hilum extending into the upper and lower lung [place]. Resolved cavitary l esion in the LEFT lower lobe. 2. No new pulmonary mass or nodule. 3. No change or progression of adenopathy. 4. Hepatic steatosis and hepatic cyst. 5. No adrenal mass.
[2023-12-25] MEDS: iohexol 350 mg/mL 500 mL Btl (per mL) IV (12:28)
== END 2023-12-25 11:49 | disposition home or self-care (01) ==
PROVIDERS: PCP Physician Assistant; Visit Provider Internal Medicine Medical Oncology
DX: C34.32 Malignant neoplasm of lower lobe, left bronchus or lung (principal); J98.4 Other disorders of lung
CPT/HCPCS: 71260; Q9967

== ENCOUNTER 2024-02-07 07:50 | Oncology outpatient (recurring) (ONCR) | payer BC, MEDICAID, SELFPAY ==
[2024-02-07 08:30] LABS: Basophils % 0.5 %; Eosinophils # 0.3 10^3/uL (0.0-0.8); Hematocrit 40.3 % (36-47); Lymphocytes % 16.7 %; Mean Corpuscular Hemoglobin 31.1 pg (27-33); Mean Corpuscular Volume 94.2 fl (85-98); Mean Platelet Volume 8.4 fL (7.4-10.4); Monocytes # 0.5 10^3/uL (0.2-0.9); Monocytes % 7.8 %; Neutrophils # 4.01 10^3/uL (1.8-7.7); Neutrophils % 69.8 %; Nucleated Red Blood Cells % 0 %; Platelet Count 285 10^3/cmm (157-399); Red Blood Count 4.28 10^6/uL (3.85-5.65); Red Cell Distribution Width 12.8 % (12.1-15.1); White Blood Count 5.75 10^3/uL (3.29-11.43)
[2024-02-07 08:44] LABS: Alanine Aminotransferase 25 U/L (0-33); Alkaline Phosphatase 75 U/L (35-105); Anion Gap 14.4 (5-19); Aspartate Amino Transferase 23 U/L (0-32); Blood Urea Nitrogen 18 mg/dL (6-20); Calcium 8.8 mg/dL (8.5-10.5); Carbon Dioxide 27 mmol/L (22-29); Chloride 103 mmol/L (98-107); Globulin 3.2 g/dL (1.3-4.6); Glomerular Filtration Rate 104.6 mL/min (90-130); Glucose 101 mg/dL (65-115); Osmolality Calculated 292 mOsm/kg (285-295); Potassium 4.4 mmol/L (3.5-5.1); Sodium 140 mmol/L (136-145); Total Bilirubin 0.2 mg/dL (0.15-1.2); Total Protein 7.2 g/dL (6.6-8.7)
== END 2024-02-18 23:59 | disposition home or self-care (01) ==
PROVIDERS: Internal Medicine Medical Oncology; PCP Physician Assistant; Visit Provider Nurse Practitioner Family
DX: C34.32 Malignant neoplasm of lower lobe, left bronchus or lung (principal)
CPT/HCPCS: 36591; 80053; 85025

== ENCOUNTER 2024-03-06 14:40 | Oncology outpatient (recurring) (ONCR) | payer BC, MEDICAID, SELFPAY | END 2024-03-20 23:59 | disposition home or self-care (01) | PROVIDERS: PCP Physician Assistant; Visit Provider Nurse Practitioner Family | DX: Z45.2 Encounter for adjustment and management of vascular access device | CPT/HCPCS: 96523 ==

== ENCOUNTER → 2024-03-11 11:52 | Outpatient (BNVA) | payer BC, MEDICAID, SELFPAY | PROVIDERS: PCP Physician Assistant; Visit Provider Nurse Practitioner Women's Health | DX: N80.03 Adenomyosis of the uterus (principal); N92.0 Excessive and frequent menstruation with regular cycle | CPT/HCPCS: 82670; 83001 ==

== ENCOUNTER 2024-04-10 14:15 | Oncology outpatient (recurring) (ONCR) | payer BC, MEDICAID, SELFPAY ==
--- NOTE | 2024-04-02 15:00 | CT_ITS ---
WS: [id number] CT chest w con* [id number] HISTORY: lung cancer TECHNIQUE: Axial imaging performed through the thorax. Coronal and sagittal reformats are submitted. All CT scans at [facility] use at least one of these dose optimization techniques: automated exposure control; mA and/or kV adjustment per patient size (includes targeted exams where dose is mat ched to clinical indication); or iterative reconstruction. CONTRAST: Omnipaque 350; 100 mL IV. DLP: 409.95 mGy.cm COMPARISON: 12/25/2023, 08/23/2023, PET/CT 10/03/2023 Lungs and central airway: Pulmonary fibrosis and resolving pneumonitis centered at the LEFT hilum is reidentified. There is postobstructive atelectasis of wall thickening and bronchiectasis extending in to the LEFT lower lobe. There is a focal area of decreased attenuation within the area of pneumonitis measuring 10 x 10 mm. The bronchial wall thickening is similar to the prior studies. There is a sing le lymph node at the RIGHT hilum which appears slightly larger in size now measuring 12 mm. Para-aort ic lymph node now measures 10 mm, prior measurement of 8 mm. No new pulmonary nodule or mass otherwis e. Pleura: Normal. No pleural effusion. Heart and pericardium: Normal size heart with no pericardial effusion. Mediastinum and artur: See above lungs and central airway report. Vessels: Mild atherosclerosis aorta. No aneurysm. Normal size pulmonary artery. Normal sized pulmonar y arteries. Chest wall and lower neck: RIGHT Mediport. Upper abdomen: Reidentified is the hepatic cysts with the largest in the RIGHT lobe measuring 2.1 x 2 .0 cm. No adrenal mass. Osseous structures: No destructive process. CT/CT chest w con* [id number] IMPRESSION: 1. Posttreatment fibrosis and pneumonitis centered at the LEFT hilum extending into the LEFT lower lobe is reidentified. Area of decreased enhancement within the central portion of the fibrosis measures 10 x 10 mm. This appears more pro minent than on the prior recent CT it could represent an early recurrence. This is a very minimal and subtle change. Recommend follow-up chest CT in 3 months with IV contrast. 2. Indeterminate RIGHT hilar lymph node has increased in size. This lymph node now measures 12 mm as compared to 10 mm. Both of these findings are very subtl e but short-term follow-up is recommended. 3. No adrenal mass. 4. Hepatic cyst.
[2024-04-02] MEDS: iohexol 350 mg/mL 500 mL Btl (per mL) IV (15:34)
[2024-04-10 14:13] LABS: Basophils % 0.4 %; Eosinophils # 0.2 10^3/uL (0.0-0.8); Eosinophils % 2.5 %; Hematocrit 37.4 % (36-47); Lymphocytes # 1.2 10^3/uL (0.8-4.8); Lymphocytes % 14.8 %; Mean Corpuscular Hemoglobin 31.8 pg (27-33); Mean Corpuscular Volume 93.7 fl (85-98); Mean Platelet Volume 8.6 fL (7.4-10.4); Monocytes # 0.8 10^3/uL (0.2-0.9); Monocytes % 9.5 %; Neutrophils # 5.72 10^3/uL (1.8-7.7); Neutrophils % 72.5 %; Nucleated Red Blood Cells % 0 %; Platelet Count 262 10^3/cmm (157-399); Red Blood Count 3.99 10^6/uL (3.85-5.65); White Blood Count 7.89 10^3/uL (3.29-11.43)
[2024-04-10 14:42] LABS: Alanine Aminotransferase 23 U/L (0-33); Albumin Level 3.9 g/dL (3.5-5.2); Alkaline Phosphatase 84 U/L (35-105); Anion Gap 13.4 (5-19); Aspartate Amino Transferase 19 U/L (0-32); Blood Urea Nitrogen 15 mg/dL (6-20); Calcium 9.1 mg/dL (8.5-10.5); Carbon Dioxide 27 mmol/L (22-29); Chloride 105 mmol/L (98-107); Globulin 2.7 g/dL (1.3-4.6); Glomerular Filtration Rate 104.6 mL/min (90-130); Glucose 76 mg/dL (65-115); Osmolality Calculated 292 mOsm/kg (285-295); Potassium 4.4 mmol/L (3.5-5.1); Sodium 141 mmol/L (136-145); Total Bilirubin 0.2 mg/dL (0.15-1.2); Total Protein 6.6 g/dL (6.6-8.7)
== END 2024-04-20 23:55 | disposition home or self-care (01) ==
PROVIDERS: PCP Physician Assistant; Visit Provider Internal Medicine Medical Oncology
DX: C34.32 Malignant neoplasm of lower lobe, left bronchus or lung; Z53.9 Procedure and treatment not carried out, unspecified reason
CPT/HCPCS: 36591; 71260; 80053; 85025; Q9967

== ENCOUNTER 2024-05-13 12:12 | Oncology outpatient (recurring) (ONCR) | payer BC, MEDICAID, SELFPAY ==
[2024-05-13 12:43] LABS: Basophils % 0.3 %; Eosinophils # 0.1 10^3/uL (0.0-0.8); Eosinophils % 1.4 %; Hematocrit 40.8 % (36-47); Lymphocytes # 0.6 10^3/uL (0.8-4.8); Lymphocytes % 11.1 %; Mean Corpuscular HGB Conc 33.1 g/dL (30-55); Mean Corpuscular Volume 93.8 fl (85-98); Mean Platelet Volume 8.8 fL (7.4-10.4); Monocytes # 0.4 10^3/uL (0.2-0.9); Monocytes % 6.8 %; Neutrophils # 4.63 10^3/uL (1.8-7.7); Neutrophils % 80.2 %; Nucleated Red Blood Cells % 0 %; Platelet Count 236 10^3/cmm (157-399); Red Blood Count 4.35 10^6/uL (3.85-5.65); Red Cell Distribution Width 12.7 % (12.1-15.1); White Blood Count 5.77 10^3/uL (3.29-11.43)
[2024-05-13 13:04] LABS: Alanine Aminotransferase 25 U/L (0-33); Albumin Level 4.1 g/dL (3.5-5.2); Alkaline Phosphatase 90 U/L (35-105); Anion Gap 14.1 (5-19); Aspartate Amino Transferase 22 U/L (0-32); Blood Urea Nitrogen 14 mg/dL (6-20); Calcium 8.7 mg/dL (8.5-10.5); Carbon Dioxide 26 mmol/L (22-29); Chloride 103 mmol/L (98-107); Glucose 95 mg/dL (65-115); Osmolality Calculated 288 mOsm/kg (285-295); Potassium 4.1 mmol/L (3.5-5.1); Sodium 139 mmol/L (136-145); Total Bilirubin 0.3 mg/dL (0.15-1.2); Total Protein 7.1 g/dL (6.6-8.7)
== END 2024-05-20 23:59 | disposition home or self-care (01) ==
PROVIDERS: Nurse Practitioner Family; PCP Physician Assistant; Visit Provider Internal Medicine Medical Oncology
DX: C34.32 Malignant neoplasm of lower lobe, left bronchus or lung (principal); Z53.9 Procedure and treatment not carried out, unspecified reason
CPT/HCPCS: 36591; 80053; 85025

== ENCOUNTER 2024-07-01 11:58 | Outpatient (CLI) | payer SELFPAY ==
--- NOTE | 2024-07-01 12:15 | CTR_ITS ---
PROCEDURE INFORMATION: Exam: CT Chest With Contrast; Diagnostic Exam date and time: 07/01/2024 12:55 PM Age: 53 years old Clinical indication: Condition or disease; Lung condition and disease; Cancer of the lung; Bilateral; Unspecified; Primary cancer: Non small cell cancer; Prior surgery; Surgery date: 6+ months; Surgery type: Port; Additional info: Non-small cell cancer TECHNIQUE: Imaging protocol: Diagnostic computed tomography of the chest with contrast. Radiation optimization: All CT scans at this facility use at least one of these dose optimization techniques: automated exposure control; mA and/or kV adjustment per patient size (includes targeted exams where dose is matched to clinical indication); or iterative reconstruction. Contrast material: OMNI 350; Contrast volume: 100 ml; Contrast route: INTRAVENOUS (IV); COMPARISON: CT chest w con* [id number] 04/02/2024 3:00 PM RADIATION DOSE METRICS: Total DLP (mGy-cm): 389.32 FINDINGS: Tubes, catheters and devices: Right subclavian Port-A-Cath tip is in the lower SVC. Lungs: Stable small area of fibrosis centered of the left hilum with postobstructive atelectasis in the left upper and left lower lobes with associated bronchiectasis. No new or enlarging pulmonary nodules are identified. Pleural spaces: Unremarkable. No pneumothorax. No pleural effusion. Heart: Unremarkable. No cardiomegaly. No pericardial effusion. Lymph nodes: Interval decrease in size of the right hilar lymph node now measuring 0.9 cm, previously 1.2 cm. No new or enlarging mediastinal or hilar lymph nodes. Vasculature: Mild atherosclerotic calcifications of the thoracic aorta. The aorta is nonaneurysmal. Liver: Stable hepatic cysts measuring up to 2 cm. Hepatic steatosis. Bones/joints: Unremarkable. No acute fracture. Soft tissues: Unremarkable. CT/CT chest w con* [id number] IMPRESSION: 1. Stable posttreatment fibrosis centered along the left hilum with postobstructive atelectasis. No definite evidence to suggest locally recurrent disease. Continued follow-up per oncology protocol is recommended. 2. Slight interval decrease in size of a prominent right hilar lymph node. No new or enlarging thoracic lymphadenopathy. 3. Remainder stable.
[2024-07-01] MEDS: iohexol 350 mg/mL 500 mL Btl (per mL) IV (13:08)
== END 2024-07-01 11:59 | disposition home or self-care (01) ==
LOC: RAD 12:00
PROVIDERS: PCP Physician Assistant; Visit Provider Internal Medicine Medical Oncology
DX: C34.92 Malignant neoplasm of unspecified part of left bronchus or lung (principal); J84.10 Pulmonary fibrosis, unspecified; J98.11 Atelectasis; R59.0 Localized enlarged lymph nodes
CPT/HCPCS: 71260

== ENCOUNTER 2024-07-01 12:15 | Oncology outpatient (recurring) (ONCR) | payer SELFPAY ==
[2024-06-25 13:41] LABS: Basophils % 0.6 %; Eosinophils # 0.2 10^3/uL (0.0-0.8); Eosinophils % 3.3 %; Hematocrit 39.5 % (36-47); Lymphocytes # 1.3 10^3/uL (0.8-4.8); Lymphocytes % 18.9 %; Mean Corpuscular HGB Conc 33.4 g/dL (30-55); Mean Corpuscular Hemoglobin 31.3 pg (27-33); Mean Corpuscular Volume 93.6 fl (85-98); Mean Platelet Volume 8.7 fL (7.4-10.4); Monocytes # 0.6 10^3/uL (0.2-0.9); Monocytes % 8.8 %; Neutrophils % 68.3 %; Nucleated Red Blood Cells % 0 %; Platelet Count 281 10^3/cmm (157-399); Red Blood Count 4.22 10^6/uL (3.85-5.65); White Blood Count 6.73 10^3/uL (3.29-11.43)
[2024-06-25 14:00] LABS: Alanine Aminotransferase 19 U/L (0-33); Albumin Level 3.9 g/dL (3.5-5.2); Alkaline Phosphatase 83 U/L (35-105); Aspartate Amino Transferase 22 U/L (0-32); Blood Urea Nitrogen 12 mg/dL (6-20); Calcium 8.5 mg/dL (8.5-10.5); Carbon Dioxide 27 mmol/L (22-29); Chloride 101 mmol/L (98-107); Globulin 3.1 g/dL (1.3-4.6); Glomerular Filtration Rate 87.5 mL/min (90-130); Glucose 84 mg/dL (65-115); Osmolality Calculated 283 mOsm/kg (285-295); Sodium 137 mmol/L (136-145); Total Bilirubin 0.2 mg/dL (0.15-1.2)
== END 2024-07-20 23:59 | disposition home or self-care (01) ==
PROVIDERS: Nurse Practitioner Family; PCP Physician Assistant; Visit Provider Internal Medicine Hematology & Oncology
DX: Z45.2 Encounter for adjustment and management of vascular access device (principal); Z53.9 Procedure and treatment not carried out, unspecified reason
CPT/HCPCS: 36591; 80053; 85025

== ENCOUNTER 2024-08-06 13:36 | Oncology outpatient (recurring) (ONCR) | payer SELFPAY ==
[2024-08-06 14:22] LABS: Basophils % 0.4 %; Eosinophils # 0.3 10^3/uL (0.0-0.8); Eosinophils % 3.5 %; Hematocrit 38.4 % (36-47); Lymphocytes # 1.1 10^3/uL (0.8-4.8); Lymphocytes % 13.2 %; Mean Corpuscular HGB Conc 32.6 g/dL (30-55); Mean Corpuscular Volume 92.1 fl (85-98); Mean Platelet Volume 8.7 fL (7.4-10.4); Monocytes # 0.6 10^3/uL (0.2-0.9); Monocytes % 7.3 %; Neutrophils % 75.5 %; Nucleated Red Blood Cells % 0 %; Platelet Count 257 10^3/cmm (157-399); Red Blood Count 4.17 10^6/uL (3.85-5.65); Red Cell Distribution Width 13.3 % (12.1-15.1); White Blood Count 8.21 10^3/uL (3.29-11.43)
[2024-08-06 14:53] LABS: Alanine Aminotransferase 17 U/L (0-33); Alkaline Phosphatase 81 U/L (35-105); Anion Gap 17.9 (5-19); Aspartate Amino Transferase 16 U/L (0-32); Blood Urea Nitrogen 15 mg/dL (6-20); Calcium 9.3 mg/dL (8.5-10.5); Carbon Dioxide 28 mmol/L (22-29); Chloride 102 mmol/L (98-107); Creatinine Clr Calc Pharmacy 130.9235; Globulin 3.4 g/dL (1.3-4.6); Glomerular Filtration Rate 129.1 mL/min (90-130); Glucose 98 mg/dL (65-115); Lactate Dehydrogenase 146 U/L (135-214); Osmolality Calculated 299 mOsm/kg (285-295); Potassium 3.9 mmol/L (3.5-5.1); Sodium 144 mmol/L (136-145); Thyroid Stimulating Hormone 1.29 uIU/mL (0.27-4.20); Total Bilirubin 0.2 mg/dL (0.15-1.2); Total Protein 7.4 g/dL (6.6-8.7)
== END 2024-08-20 23:59 | disposition home or self-care (01) ==
PROVIDERS: Internal Medicine Hematology & Oncology; PCP Physician Assistant; Visit Provider Internal Medicine Medical Oncology
DX: C34.32 Malignant neoplasm of lower lobe, left bronchus or lung
CPT/HCPCS: 36591; 80053; 83615; 84443; 85025

== ENCOUNTER 2024-09-17 14:28 | Oncology outpatient (recurring) (ONCR) | payer SELFPAY | END 2024-09-20 23:59 | disposition home or self-care (01) | PROVIDERS: PCP Physician Assistant; Visit Provider Internal Medicine Medical Oncology | DX: Z45.2 Encounter for adjustment and management of vascular access device (principal) | CPT/HCPCS: 96523 ==

== ENCOUNTER 2024-10-15 12:45 | Oncology outpatient (recurring) (ONCR) | payer SELFPAY ==
[2024-10-14] MEDS: iohexol 350 mg/mL 500 mL Btl (per mL) PO (15:35)
[2024-10-14 15:47] LABS: Basophils % 0.5 %; Eosinophils # 0.3 10^3/uL (0.0-0.8); Eosinophils % 5.8 %; Lymphocytes # 1.2 10^3/uL (0.8-4.8); Lymphocytes % 21.8 %; Mean Corpuscular HGB Conc 33.2 g/dL (30-55); Mean Corpuscular Hemoglobin 30.4 pg (27-33); Mean Corpuscular Volume 91.8 fl (85-98); Mean Platelet Volume 8.6 fL (7.4-10.4); Monocytes # 0.5 10^3/uL (0.2-0.9); Monocytes % 8.8 %; Neutrophils # 3.58 10^3/uL (1.8-7.7); Neutrophils % 62.7 %; Nucleated Red Blood Cells % 0 %; Platelet Count 264 10^3/cmm (157-399); Red Blood Count 4.14 10^6/uL (3.85-5.65); Red Cell Distribution Width 13.2 % (12.1-15.1)
[2024-10-14 16:07] LABS: Alanine Aminotransferase 19 U/L (0-33); Albumin Level 4.1 g/dL (3.5-5.2); Alkaline Phosphatase 78 U/L (35-105); Anion Gap 13.5 (5-19); Aspartate Amino Transferase 18 U/L (0-32); Blood Urea Nitrogen 15 mg/dL (6-20); Calcium 8.6 mg/dL (8.5-10.5); Carbon Dioxide 26 mmol/L (22-29); Chloride 106 mmol/L (98-107); Globulin 2.6 g/dL (1.3-4.6); Glomerular Filtration Rate 104.6 mL/min (90-130); Glucose 141 mg/dL (65-115); Osmolality Calculated 297 mOsm/kg (285-295); Potassium 3.5 mmol/L (3.5-5.1); Sodium 142 mmol/L (136-145); Total Bilirubin 0.2 mg/dL (0.15-1.2); Total Protein 6.7 g/dL (6.6-8.7)
--- NOTE | 2024-10-14 16:30 | CT_ITS ---
WS: [id number] CT CHEST, ABDOMEN, AND PELVIS TECHNIQUE: Contrast-enhanced CT of the chest, abdomen, and pelvis with coronal and sagittal reformatted images. CLINICAL INFORMATION: lung cancer COMPARISON: None. DLP: 979.[address] scans at [facility] use at least one of these dose optimization techniques: automated exposure control; mA and/or kV adjustment per patient size (includes targeted exams where dose is matched to clinical indication); or iterative reconstruction. CT CHEST: No mediastinal or hilar lymphadenopathy. Lungs are well aerated. Stable treatment-related changes with fibrosis about the LEFT hilum. Subsegmental atelectasis LEFT lower lobe is unchanged. RIGHT lung is well aerated. Normal caliber thoracic aorta. CT ABDOMEN AND PELVIS: Diffuse fatty infiltration of the liver. Incidental liver cysts. Normal portal vein and splenic vein. Normal spleen. Normal pancreatic parenchymal enhancement. Adrenal glands are normal. Normal renal parenchymal enhancement. No hydronephrosis. Normal caliber abdominal aorta. Small esophageal hernia with air-fluid level. Retroverted uterus. Diffuse soft tissue thickening at the cervix. Some of this may represent blood products or hematoma. Recommend [employer] consultation. Cervical mass or carcinoma not excluded. Sigmoid diverticulosis. No evidence of acute diverticulitis. Normal appendix. CT/CT chest abdpel w/*[id number] IMPRESSION: 1. Stable treatment-related changes with fibrosis LEFT hilum is unchanged. No evidence of disease progression in the chest. 2. No evidence of disease progression in the abdomen or pelvis. 3. Diffuse masslike soft tissue thickening at the cervix. Recommend [employer] consul tation. Cervical mass or carcinoma not excluded.
[2024-10-14] MEDS: iohexol 350 mg/mL 500 mL Btl (per mL) IV (16:31)
== END 2024-10-18 23:59 | disposition home or self-care (01) ==
LOC: ONCMED 13:54
PROVIDERS: PCP Physician Assistant; Visit Provider Internal Medicine Medical Oncology
DX: Z53.9 Procedure and treatment not carried out, unspecified reason
CPT/HCPCS: 36591; 71260; 74177; 80053; 85025

== ENCOUNTER → 2024-11-08 09:10 | Outpatient (BNVA) | payer SELFPAY | PROVIDERS: PCP Physician Assistant; Visit Provider Nurse Practitioner Women's Health | DX: Z12.4 Encounter for screening for malignant neoplasm of cervix (principal); M79.89 Other specified soft tissue disorders | CPT/HCPCS: 87624 ==

== ENCOUNTER → 2024-11-19 10:20 | Outpatient (BNVA) | payer SELFPAY | PROVIDERS: PCP Physician Assistant; Visit Provider Nurse Practitioner Women's Health | DX: R93.89 Abnormal findings on diagnostic imaging of other specified body structures (principal) | CPT/HCPCS: 76830 ==

== ENCOUNTER 2024-11-26 14:27 | Oncology outpatient (recurring) (ONCR) | payer SELFPAY | END 2024-12-18 23:59 | disposition home or self-care (01) | PROVIDERS: PCP Physician Assistant; Visit Provider Internal Medicine Medical Oncology | DX: Z45.2 Encounter for adjustment and management of vascular access device (principal) | CPT/HCPCS: 96523 ==

== ENCOUNTER 2025-01-07 15:10 | Oncology outpatient (recurring) (ONCR) | payer SELFPAY ==
--- NOTE | 2024-12-24 12:04 | CT_ITS ---
WS: [id number] CT chest w con* [id number] HISTORY: PRIMARY SQUAMOUS CELL CARCINOMA TECHNIQUE: Axial imaging performed through the thorax. Coronal and sagittal reformats are submitted. All CT scans at [facility] use at least one of these dose optimization techniques: automated exposure control; mA and/or kV adjustment per patient size (includes targeted exams where dose is matched to clinical indication); or iterative reconstruction. CONTRAST: Omnipaque 350; 100 mL IV. DLP: 416.93 mGy.cm COMPARISON: 04/02/2024, 10/14/2024 Lungs and central airway: Mild volume loss with fibrosis and atelectasis centered at the LEFT hilum is stable over several prior examinations. No evidence for recurrent neoplasm. No new mass or pneumonia. Pleura: Normal. No pleural effusion. Heart and pericardium: Normal size heart with no pericardial effusion. Mediastinum and artur: Small stable bilateral mediastinal and hilar lymph nodes. Vessels: Normal size aortic and pulmonary artery. No coronary artery calcifications. Chest wall and lower neck: RIGHT central line. Upper abdomen: Small hiatal hernia. Hepatic cysts are reidentified with the largest measuring 2.1 cm. No adrenal mass. Osseous structures: No destructive process. CT/CT chest w con* [id number] IMPRESSION: 1. Stable posttreatment changes at the LEFT hilum with associated chronic atel ectasis. No evidence for recurrent neoplasm. 2. No enlarging or new mediastinal or hilar lymph nodes. 3. Stable hepatic cysts. 4. No adrenal mass.
[2024-12-24] MEDS: iohexol 350 mg/mL 500 mL Btl (per mL) IV (12:30)
[2025-01-07 13:11] LABS: Basophils % 0.7 %; Eosinophils # 0.3 10^3/uL (0.0-0.8); Eosinophils % 4.8 %; Hematocrit 39.6 % (36-47); Lymphocytes # 1.5 10^3/uL (0.8-4.8); Lymphocytes % 24.6 %; Mean Corpuscular HGB Conc 33.3 g/dL (30-55); Mean Corpuscular Hemoglobin 30.8 pg (27-33); Mean Corpuscular Volume 92.3 fl (85-98); Mean Platelet Volume 8.5 fL (7.4-10.4); Monocytes # 0.5 10^3/uL (0.2-0.9); Monocytes % 7.9 %; Neutrophils # 3.74 10^3/uL (1.8-7.7); Neutrophils % 61.7 %; Nucleated Red Blood Cells % 0 %; Platelet Count 283 10^3/cmm (157-399); Red Blood Count 4.29 10^6/uL (3.85-5.65); Red Cell Distribution Width 13.2 % (12.1-15.1); White Blood Count 6.06 10^3/uL (3.29-11.43)
[2025-01-07 13:46] LABS: Alanine Aminotransferase 15 U/L (0-33); Albumin Level 4.1 g/dL (3.5-5.2); Alkaline Phosphatase 75 U/L (35-105); Aspartate Amino Transferase 17 U/L (0-32); Blood Urea Nitrogen 15 mg/dL (6-20); Calcium 9.3 mg/dL (8.5-10.5); Carbon Dioxide 26 mmol/L (22-29); Chloride 103 mmol/L (98-107); Creatinine Clr Calc Pharmacy 107.5423; Globulin 3.2 g/dL (1.3-4.6); Glomerular Filtration Rate 104.2 mL/min (90-130); Glucose 79 mg/dL (65-115); Osmolality Calculated 288 mOsm/kg (285-295); Sodium 139 mmol/L (136-145); Thyroid Stimulating Hormone 1.99 uIU/mL (0.27-4.20); Total Bilirubin 0.2 mg/dL (0.15-1.2); Total Protein 7.3 g/dL (6.6-8.7)
== END 2025-01-18 23:59 | disposition home or self-care (01) ==
PROVIDERS: PCP Physician Assistant; Visit Provider Internal Medicine Medical Oncology
DX: Z53.9 Procedure and treatment not carried out, unspecified reason; C34.32 Malignant neoplasm of lower lobe, left bronchus or lung
CPT/HCPCS: 36591; 71260; 80053; 84443; 85025; 96523

== ENCOUNTER 2025-02-25 13:56 | Oncology outpatient (recurring) (ONCR) | payer SELFPAY | END 2025-03-20 23:59 | disposition home or self-care (01) | PROVIDERS: PCP Physician Assistant; Visit Provider Internal Medicine Medical Oncology | DX: Z53.9 Procedure and treatment not carried out, unspecified reason (principal); C34.32 Malignant neoplasm of lower lobe, left bronchus or lung; Z95.828 Presence of other vascular implants and grafts; K76.89 Other specified diseases of liver | CPT/HCPCS: 96523 ==

== ENCOUNTER 2025-05-13 12:45 | Oncology outpatient (recurring) (ONCR) | payer SELFPAY ==
--- NOTE | 2025-04-22 11:59 | CT_ITS ---
WS: [id number] CT chest w con* [id number] HISTORY: SURVEILLANCE TECHNIQUE: Axial imaging performed through the thorax. Coronal and sagittal reformats are submitted. All CT scans at [facility] use at least one of these dose optimization techniques: automated exposure control; mA and/or kV adjustment per patient size (includes targeted exams where dose is matched to clinical indication); or iterative reconstruction. CONTRAST: Omnipaque 350; 100 mL IV. DLP: 409.75 mGy.cm COMPARISON: 12/24/2024, 12/12/2024, 07/01/2024 Lungs and central airway: Chronic atelectasis and volume loss in the LEFT lung. There is mild soft tissue thickening involving the LEFT hilum. Mild soft tissue thickening extending into the proximal LEFT upper and LEFT lower lobe bronchovascular tree. Chronic atelectasis portion of the LEFT lower lobe. No recurrent mass or new mass or nodule. No pneumonia. Pleura: Normal. No pleural effusion. Heart and pericardium: Normal size heart with no pericardial effusion. Mediastinum and artur: No adenopathy. Stable soft tissue prominence at the LEFT hilum. Vessels: Normal size aortic and pulmonary artery. No coronary artery calcifications. Chest wall and lower neck: RIGHT Mediport. Upper abdomen: Hepatic cysts. No metastatic lesions in the liver. No adrenal mass. Osseous structures: Mild straightening of the normal thoracic spine. No destructive bone lesions. CT/CT chest w con* [id number] IMPRESSION: 1. Status post treatment changes involving the LEFT hilum and proximal broncho vascular tree of the LEFT upper and LEFT lower lobes. 2. No recurrent mass or nodule. No adenopathy. 3. Hepatic cysts. 4. No adrenal mass. 5. Chronic, segmental atelectasis and volume loss LEFT lower lobe.
[2025-04-22] MEDS: iohexol 350 mg/mL 500 mL Btl (per mL) IV (12:30)
[2025-05-13 13:05] LABS: Hematocrit 37.8 % (36-47); Hemoglobin 12.70 g/dL (11.27-16.99); Mean Corpuscular HGB Conc 33.6 g/dL (30-55); Mean Corpuscular Hemoglobin 30.9 pg (27-33); Mean Corpuscular Volume 92.0 fl (85-98); Nucleated Red Blood Cells % 0 %; Platelet Count 276 10^3/cmm (157-399); Red Blood Count 4.11 10^6/uL (3.85-5.65); White Blood Count 6.16 10^3/uL (3.29-11.43)
[2025-05-13 13:27] LABS: Alanine Aminotransferase 15 U/L (0-33); Albumin Level 4.2 g/dL (3.5-5.2); Alkaline Phosphatase 77 U/L (35-105); Anion Gap 14.0 (5-19); Aspartate Amino Transferase 17 U/L (0-32); Blood Urea Nitrogen 18 mg/dL (6-20); Calcium 9.4 mg/dL (8.5-10.5); Carbon Dioxide 27 mmol/L (22-29); Chloride 103 mmol/L (98-107); Globulin 3.1 g/dL (1.3-4.6); Glucose 87 mg/dL (65-115); Osmolality Calculated 291 mOsm/kg (285-295); Potassium 4.0 mmol/L (3.5-5.1); Sodium 140 mmol/L (136-145); Total Protein 7.3 g/dL (6.6-8.7)
== END 2025-05-20 23:59 | disposition home or self-care (01) ==
PROVIDERS: PCP Physician Assistant; Visit Provider Nurse Practitioner Family
DX: C34.32 Malignant neoplasm of lower lobe, left bronchus or lung; Z53.9 Procedure and treatment not carried out, unspecified reason
CPT/HCPCS: 36591; 71260; 80053; 85025; 96523

== ENCOUNTER 2025-06-24 12:32 | Oncology outpatient (recurring) (ONCR) | payer SELFPAY | END 2025-07-20 23:59 | disposition home or self-care (01) | LOC: ONCMED 12:32 | PROVIDERS: PCP Physician Assistant; Visit Provider Nurse Practitioner Family | DX: Z45.2 Encounter for adjustment and management of vascular access device (principal); Z95.828 Presence of other vascular implants and grafts | CPT/HCPCS: 96523 ==

== ENCOUNTER 2025-08-05 12:05 | Oncology outpatient (recurring) (ONCR) | payer SELFPAY | END 2025-08-20 23:59 | disposition home or self-care (01) | PROVIDERS: PCP Physician Assistant; Visit Provider Nurse Practitioner Family | DX: Z45.2 Encounter for adjustment and management of vascular access device (principal); Z95.828 Presence of other vascular implants and grafts | CPT/HCPCS: 96523 ==